=== PATIENT | male | born 1935 | race Caucasian/White ===

== ENCOUNTER 2018-10-21 11:39 | Inpatient (IN) ==
[2018-10-21] MEDS ORDERED: MoRPHine SULFATE 2 MG/ML CARP IV PRN ×2 (13:21→18:43)
[2018-10-21] MEDS ORDERED: MoRPHine SULFATE 4 MG/ML 1 ML CARP\\VIAL IV PRN (13:21)
[2018-10-21] MEDS ORDERED: ONDANSETRON INJ 2 MG/ML 2 ML VIAL IV PRN ×2 (13:21→16:42)
--- OUTSIDE RECORDS SUMMARY | 2018-10-21 14:28 | External Medical Summary | Continuity of Care Document ---
:1935 Author Name Chinmay Diaz Address Unavailable Unavailable , Care Team Providers Name Role Phone Unavailable Unavailable Unavailable Problems Chronic reflux esophagitis (530.11) (K21.0) Shortness of breath (786.05) (R06.02) Asthma (493.90) (J45.909) Aortic stenosis (424.1) (I35.0) Allergies and Adverse Reactions No Known Drug Allergies (Allergy) Medications Toprol XL 25 MG Oral Tablet Extended Release 24 Hour; TAKE 1 TABLET DAILY. , M.D. Refills: 0 Fish Oil 1000 MG Oral Capsule; TAKE 1 CAPSULE DAILY. , M.D. Refills: 0 Advair Diskus 100-50 MCG/DOSE Inhalation Aerosol Powder Breath Activated; INHALE 1 PUFF EVERY 12 HOURS. , M.D. Refills: 0 Aspirin 81 MG TABS; TAKE 1 TABLET DAILY. , M.D. Quantity: 30 Refills: 5 Ibuprofen 600 MG Oral Tablet; TAKE 1 TABLET 3 TIMES DAILY . , M.D. Refills: 0 PriLOSEC 20 MG CPDR; TAKE 1 CAPSULE TWICE DAILY. , M.D. Refills: 0 ProAir HFA 108 (90 Base) MCG/ACT Inhalat ion Aerosol Solution; INHALE 2 PUFFS EVERY 4 HOURS NEEDED , M.D. Quantity: 1 Refills: 5 Triamterene-HCTZ 37.5-25 MG Oral Tablet; TAKE 1 TABLET DAILY . , M.D. Quantity: 30 Refills: 5 Procedures History of Reported Hx Of Knee Replacement Status: Completed History of Tonsillectomy With Adenoidectomy Status: Completed History of Appendectomy Status: Complete d History of Hernia Repair Status: Complet ed History of Neuroplasty Decompression Median Nerve At Carpal Status: Completed Tunnel Immunizations Immunizations not documented Family History Unknown Family Member Family history of Parkinson Disease Status: Active Comm ents: Family History Social History - Smoking Status Never smoker Plan of Treatment Planned Observations Planned Goals not documented Results No Known Results Results not documented
[2018-10-21] MEDS ORDERED: MIDAZOLAM HCL 1 MG/ML 2ML VIAL ONE (15:13)
[2018-10-21] MEDS ORDERED: fentaNYL citrate 100 MCG/2 ML VIAL ONE ×2 (15:13→16:39)
--- NOTE | 2018-10-21 15:40 | Urology Consultation ---
Date of Consultation October 21, 2018 Assessment & Plan (1) Left ureteral calculus: to OR for cysto left stent in a few weeks once cr is normal will plan a day surgery to remove stones. 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 Patient is an urgent transfer from [facility]. He has rise in creatinine to over 2. He has baslein e of 1 cr. He has no pain. CT shows several elft ureteral stones upper and lower ureter with severe hydro. Requesting Physician: Dr Zane Roche Attending Physician: Dawson Will MD Patient History Medical History Acute renal failure Anemia GERD (gastroesophageal reflux disease) Hypertension Obesity Ureteral stone Surgical History History of appendectomy History of heart valve replacement September 02 2016 History of hernia repair History of knee replacement Social History Communication Ability: Effective [employer] Instructor Required: No Beliefs That Will Affect Care: None Current Living Situation: Alone Other Information That Helps Us Care for You: No Feels Safe at Home: Yes Smoking Status: Never smoker Do You Dip or Chew Tobacco: No Hx Alcohol Use: No Hx Substance Use: No Review of Systems Review of Systems: PMH- borderline DM, HTN, GERD PSH- aortic valve replacement endovascular at [facility] Allergy- none soc- retired, + children, no tobacco or alcohol ROS- no chest pain or shortness of breath, + constipation, no seizures, no rash, no urinary problems, no fever or chills Physical Exam Constitutional: WD/WN, vitals as above + obese Respiratory: normal respiratory effort, lungs clear to auscultation Cardiovascular: RRR, no murmur, no edema soft blowing systolic murmur Psychiatric: A+Ox3, euthymic affect Results & Data Vital Signs (Past 12 Hours) Vital Signs Temp Pulse Resp BP Pulse Ox 10/21/18 14:27 36.8 C 62 16 161/75 H 96
--- NOTE | 2018-10-21 15:40 | Anesthesiology Consultation ---
Date of Service October 21, 2018 Assessment & Plan (1) Encounter for pre-operative examination: Chart Review Chart Review: Acceptable Risk for Surgery and Patient NOT seen in Pre Admission Testing Consults Requested none ASA [id number] Proposed Anesthesia Anesthesia Type: MAC Risk / Benefits Reviewed With: PT / POA / Parent / Guardian, Accepts Plan and Informed Consent Obtained History Surgery Operation Date: 10/21/18 13:35 Proposed Procedures p Cystoscopy, Left Stent Insertion - Radha Romero MD Height/Weight Height: 5 ft 10 in Weight: 113.398 kg Allergies Allergy/AdvReac Type Severity Reaction Status Date / Time No Known Allergies Allergy Verified 10/21/18 16:01 Medications Home Medications Medication Instructions Recorded Confirmed Last Taken Aspirin Low Dose 10/21/18 10/20/18 08:00 esomeprazole magnesium 10/21/18 10/20/18 08:00 lisinopril 10/21/18 10/20/18 08:00 metoprolol succinate 10/21/18 10/20/18 08:00 omega-3 fatty acids-fish oil [Fish 1 cap PO DAILY 10/21/18 10/21/18 10/20/18 08:00 Oil] omeprazole 10/21/18 10/20/18 08:00 tamsulosin 10/21/18 10/20/18 08:00 NPO Date Last Intake of Fluids: 10/21/18 Time Last Intake of Fluids: 12:30 Date Last Intake of Solids: 10/20/18 Time Last Intake of Solids: 18:30 Past Medical History Medical History Acute renal failure Anemia GERD (gastroesophageal reflux disease) Hypertension Obesity Ureteral stone Exercise / Class Metabolic Activity III < 4 Walking/Shop/Light housework Past Surgical History Surgical History History of appendectomy History of heart valve replacement September 02 2016, endovascular aortic valve History of hernia repair History of knee replacement Past Anesthesia History No Hx of Anesthesia Complications and No Family Hx of Anesthesia Complications History of PONV No Hx of PONV and No Hx of Motion Sickness Social History Smoking Status: Never smoker Do You Dip or Chew Tobacco: No Hx Alcohol Use: No Hx Substance Use: No Review of Systems no chest pain or sob Physical Exam Vital Signs Last Vital Signs Temp 38 C H 10/21/18 15:35 Pulse 70 10/21/18 15:35 Resp 18 10/21/18 15:35 BP 153/84 H 10/21/18 15:35 Pulse Ox 95 10/21/18 15:35 Constitutional + obese ENMT Mouth: + dental caries; no TMJ abnormality Thyromental Distance: > or= 3.5 Finger Breadths Mallampati Class: III Neck normal visual inspection and + thick neck Respiratory normal respiratory effort Auscultation: lungs clear to auscultation bilaterally and + diminished lung sounds Cardiovascular Rate/Rhythm: regular rate and regular rhythm Neurologic moves all extremities Psychiatric Orientation: alert and oriented x 3 Testing Laboratory Results Glucose 147 BUN 34 Cr 2.3 Na 139 K 4.5 CO2 25 AG 10.5 Ca 8.8 Total prot 7.4 albumin 3 WBC 5.3 Hgb 12 Plt 125
[2018-10-21] MEDS ORDERED: IOTHALAMATE MEGLUMINE II 17.2% 250 ML VIAL ONE (15:46)
--- NOTE | 2018-10-21 15:50 | History & Physical Report ---
Date of Service October 21, 2018 Assessment & Plan (1) Hydronephrosis concurrent with and due to calculi of kidney and ureter: - CT performed at [facility] with 12 mm prox L ureter stone and multiple stones in L UVJ and bladder; moderate/severe L hydronephrosis - Labs largely unremarkable with WBC 5.3; Lactic 0.8; UA appears unremarkable but reports "few bacteria" - S/P cystoscopy with stent and Coude catheter placement - planning on stone removal in coming weeks -- Noted to have an enlarged prostate on cysto - Pain control with Tylenol, Percocet, Morphine PRN; anti-emetics PRN - Flomax 0.4 mg HS and Proscar 5 mg daily - Urology following - appreciate surgical management/input Present on Admission?: Yes (2) Acute kidney injury: - Most recent Cr is 2.3 which is likely in the setting of obstructive uropathy - NSS at 125 mL/hr and daily BMP; Hold Lisinopril in setting of JAN - Reported baseline around 1 but no laboratories to compare Present on Admission?: Yes (3) Essential hypertension: - Patient is not sure of dosing of his medication but confirms he takes Lisinopril and Metoprolol - Per outpatient pharmacy it appears he takes Lisinopril 10 mg daily (on hold due to JAN) and Toprol XL 12.5 mg daily (notes he does take 1/2 tablet of a blood pressure medication) - Will continue Toprol XL 12.5 mg and Hydralazine PRN; having elevated pressures which is likely multifactorial and remains asymptomatic from them - Hold ASA given cystoscopy at this time Present on Admission?: Yes (4) DVT prophylaxis: - SCDs History of Present Illness Chief Complaint: Back Pain Primary Care Provider: NO PCP Mr. Shipman is an 83 y/o with PMHx of HTN, GERD, and Porcine Aortic Valve Replacement (2017) who presents from [facility] due to ureteral stone, hydronephrosis, and JAN. Pt reports his has had some mild L back pain over the past 3 days. States he initially thought this was due to constipation but did move his bowels on 10/20. The pain progressively worsened and he was evaluated in a walk-in clinic the day prior. His PCP did recommend ED evaluation and he reported to [facility] ED this AM. He was found to have a 12 mm proximal L ureter stone and multiple stones in the L UVJ and bladder with associated moderate/severe L hydronephrosis. UA appears relatively unremarkable. WBC 5.3 and Lactic 0.8. Creatinine is noted to be 2.3 with reports that baseline is around 1. Upon arrival to [facility], he underwent cystoscopy with stent placement and Coude catheter placement. Currently states he has some mild burning sensation at the meatus but is better than before. Currently denies back pain and asking for food. He appears non-toxic and denies feelings of fever/chills. He was noted to have a mild fever of 100 F prior to cystoscopy. Allergies Allergy/AdvReac Type Severity Reaction Status Date / Time No Known Allergies Allergy Verified 10/21/18 16:01 Home Medications Home Medications Medication Instructions Recorded Confirmed Type Aspirin Low Dose 81 mg PO DAILY 10/21/18 10/21/18 History esomeprazole magnesium 20 mg PO DAILY 10/21/18 10/21/18 History lisinopril 10 mg PO DAILY 10/21/18 10/22/18 History metoprolol succinate 12.5 mg PO DAILY 10/21/18 10/21/18 History omega-3 fatty acids-fish oil [Fish 1 cap PO DAILY 10/21/18 10/21/18 History Oil] tamsulosin 0.4 mg PO DAILY 10/21/18 10/22/18 History Past Med/Surg History Medical History Acute renal failure Anemia GERD (gastroesophageal reflux disease) Hypertension Obesity Ureteral stone Surgical History History of appendectomy History of heart valve replacement September 02 2016, endovascular aortic valve History of hernia repair History of knee replacement Social History Communication Ability: Effective Beliefs That Will Affect Care: None Current Living Situation: Alone Feels Safe at Home: Yes Smoking Status: Never smoker Hx Alcohol Use: No Hx Substance Use: No Review of Systems Constitutional: no fever, no chills, no fatigue and no anorexia Eyes: no worsening vision Ear, Nose, Mouth, Throat: no nasal congestion, no sore throat, no hoarseness and no dysphagia Respiratory: no cough, no dyspnea and no dyspnea on exertion Cardiovascular: no chest pain, no palpitations, no lightheadedness and no edema Gastrointestinal: no abdominal pain, no nausea, no vomiting, no constipation and no diarrhea/loose stools Genitourinary: + dysuria Musculoskeletal: no joint pain and no body aches Integumentary: no rash Physical Exam Constitutional: well developed and well nourished; no acute distress and not ill appearing Eyes: + anicteric sclerae ENMT: Ears: no hearing impairment Neck: normal visual inspection and trachea midline Respiratory: normal respiratory effort, lungs clear to auscultation Cardiovascular: RRR, no murmur, no edema Gastrointestinal (Abdomen): Inspection/Auscultation: + abdomen distended and normal bowel sounds Percussion/Palpation: abdomen soft; abdomen nontender Musculoskeletal: Head/Neck/Chest: normocephalic, head atraumatic and neck supple Extremities: no cyanosis and no clubbing Skin: no rashes, warm and dry Neurologic: moves all extremities Psychiatric: A+Ox3, euthymic affect Results & Data Vital Signs (Past 12 Hours) Vital Signs Temp Pulse Resp BP Pulse Ox 10/21/18 15:35 38 C H 70 18 153/84 H 95 10/21/18 14:27 36.8 C 62 16 161/75 H 96 Code Status & VTE Plan Code Status FULL RESUSCITATION VTE Prophylaxis Plan VTE Prophylaxis will be ordered: Yes Supervising Physician Co-Signing Physician Notes Attending note: patient seen and examined with Jessika Serrano PA-C. I agree with her HPI, history, exam, ROS and A/P. I personally reviewed the labs and imaging findings. Patient admitted for ureteral stone, s/p stent placement. Seen after procedure. Feeling okay, a little fatigued. Pain controlled - JAN: due to ureteral stone, will continue fluids and repeat BMP in the morning - Ureteral stone: pain control, stent placed, continue on antibiotics defer to urology for definitive managment for full details see full H/P
[2018-10-21] MEDS ORDERED: CEFAZOLIN 2000MG 2,000 MG/15 ML SYR IV SCH (16:00)
[2018-10-21] MEDS ORDERED: PROPOFOL IV EMULSION 10 MG/ML 20 ML VIAL IV ONE ×3 (16:18→16:41)
[2018-10-21] MEDS ORDERED: DEXAMETHASONE SOD INJ 4 MG/ML VIAL ONE (16:18)
[2018-10-21] MEDS ORDERED: LIDOCAINE HCL 2% 2 ML VIAL/AMP(20MG/ML) INFIL ONE (16:18)
[2018-10-21] MEDS ORDERED: ONDANSETRON INJ 2 MG/ML 2 ML VIAL ONE (16:18)
[2018-10-21] MEDS ORDERED: PHENYLEPHRINE 100MCG/ML 5ML SYR IV PRN (16:42)
[2018-10-21] MEDS ORDERED: LABETALOL HCL IV 5 MG/ML 20ML IV PRN (16:42)
[2018-10-21] MEDS ORDERED: ePHEDrine sulfate 50 MG/ML AMP IV PRN (16:42)
[2018-10-21] MEDS ORDERED: fentaNYL citrate 100 MCG/2 ML VIAL IV PRN (16:42)
[2018-10-21] MEDS ORDERED: ATROPINE SULFATE 0.1 MG/ML 10ML SYR IV PRN (16:42)
[2018-10-21] MEDS ORDERED: BELLADONNA/OPIUM SUPP 60 MG SUPP PR ONE (16:49)
--- NOTE | 2018-10-21 16:57 | Operative Report ---
Post Operative Report Pre & Post Diagnosis Operation Date: 10/21/18 13:35 Pre-Op Diagnosis: left Ureteral Stones, Hydronephrosis, renal failure Post-Op Diagnosis: Bladder stones, ureteral stones, hydronephrosis Procedure Operation Date: 10/21/18 13:35 Actual Procedures p Cystoscopy, Left Stent Insertion(Left) quinones placement - Radha Romeor MD Surgeon Radha Romero MD Billet Sawyer none Estimated Blood Loss 30 Findings See Below very large long prostate, large middle lobe medium and large bladder stones in the dependent trigone crease with the middle lobe of prostate. UOs very difficult to see. Fluids 900 Specimens none Drains 6 fr 26 centimeter double J stent Anesthesia Type General Disposition Accompanied Patient To Recovery: Yes Disposition: Recovery Room Indications renal failure and large obstructing left upper ureteral stone Description of Procedure Patient was sedated and placed in lithotomy position. His genitals were prepped and draped in sterile fashion. Time out held with team. I placed a 18 fr flexible cystoscope to bladder. The urethra is unremarkable. The prostate is long and lifts the bladder neck considerably. Bladder is trabeculated. I could not find the UOs and there are bladder stones medium and large in the crease f the dependent trigone with I switched back to a flexible cystoscope. I had anesthesia switch to general LMA anesthesia as he was too figity with the MAC. The UOs are finally identified by retroflexing the scope. I placed a road runner wire up left ureter to the upper ureter. I used the 5 fr as a backboard to manipulate the road runner passed the large radio-opaque stone and then switched to a stiff wire. I placed a 26 centimeter 6 Fr double J stent easily. There is brisk efflux after placement. I left bladder empty by placing a 20 fr coude quinones and concluded case. I placed a belladonna and opium suppository for post-op pain. He transferred to recovery under my escort, in stable condition. Plan: observe in hospital for 2 days surgery in 2-3 weeks. will need extra long instruments ASA 3e clean contaminated case 30 seconds fluoro ancef antibiotic aviation safety technician I attest to the content of the Intraoperative Record and any orders documented therein. Any exceptions are noted below.
[2018-10-21] MEDS ORDERED: BELLADONNA/OPIUM SUPP 60 MG SUPP PR PRN (17:05)
--- NOTE | 2018-10-21 17:26 | Anesthesiology Progress Note ---
Date of Service October 21, 2018 Anesthesia Post Procedure Vital Signs Vital Signs: Temp Pulse Pulse Resp BP Pulse Ox 10/21/18 17:04 36.0 C L 82 21 141/81 H 96 10/21/18 15:35 38 C H 70 18 153/84 H 95 10/21/18 14:27 36.8 C 62 16 161/75 H 96 Pain Intensity Lower Abdomen: Pain Intensity: 0 Transfer of Care Handoff Completed per policy Notes Mental Status: alert / awake / arousable Patient Amnestic to Procedure: Yes Nausea / Vomiting: adequately controlled Pain: adequately controlled Airway Patency, RR, SpO2: stable & adequate BP & HR: stable & adequate Hydration State: stable & adequate Anesthetic Complications: no major complications apparent and Pt Satisfied with anesthetic care Notes: The patient was converted to a GA with LMA during the procedure. He is awake and stable.
--- NOTE | 2018-10-21 17:28 | Fluoroscopy Report ---
FL KUB CLINICAL HISTORY: CYSTO COMPARISON STUDY: CT of the abdomen and pelvis October 21, 2018. FLUOROSCOPY TIME: 30 seconds. FLUOROSCOPIC IMAGES: 3 FINDINGS: These images demonstrate cannulation of the left ureter. Left ureteropelvic junction calcul us is noted. Distal aspect of the left ureteral stent is within the bladder. A few suspected bladder calculi are noted. IMPRESSION: Fluoroscopic images from left retrograde exam with ureteral stent insertion. Electronically signed by: Walter Steel M.D. 10/21/2018 5:27 PM
[2018-10-21] MEDS ORDERED: HydrALAZINE HCL 20 MG/ML VIAL IV PRN (18:37)
[2018-10-21] MEDS ORDERED: ACETAMINOPHEN 325 MG TAB PO PRN (18:43)
[2018-10-21] MEDS ORDERED: POLYETHYLENE (MIRALAX) 17 GM PACK PO PRN (18:44)
[2018-10-21] MEDS ORDERED: BISACODYL 5 MG TABEC PO PRN (18:44)
[2018-10-21] MEDS ORDERED: HydrALAZINE HCL 20 MG/ML VIAL ONE (18:52)
[2018-10-21] MEDS: SODIUM CHLORIDE 0.9% 1000ML 1,000 ML IV SCH (19:39)
[2018-10-21] MEDS: OXYCODONE/ACETAMINOPHEN 5mg/325mg TAB PO PRN (19:58)
[2018-10-21] MEDS: cefTRIAXone SODIUM 2,000 MG in DEXTROSE 5% 50 ML IV SCH (19:59)
[2018-10-21] MEDS: TAMSULOSIN HCL 0.4 MG CAP PO SCH (19:59)
[2018-10-22] MEDS: SODIUM CHLORIDE 0.9% 1000ML 1,000 ML IV SCH ×4 (00:40→21:09)
[2018-10-22] MEDS: OXYCODONE/ACETAMINOPHEN 5mg/325mg TAB PO PRN ×2 (00:41→05:52)
[2018-10-22 07:05] LABS: Hematocrit (blood only) 35.1 % (42-52); Mean Corpuscular Hgb Conc 34.2 g/dL (32-36); Mean Corpuscular Volume 87.5 fL (80-100); Mean Platelet Volume 12.2 fL (7.4-10.4); Platelet Count 145 K/uL (130-400); RDW Coefficient of Variation 13.8 % (11.5-14.5); RDW Standard Deviation 44.3 fL (36.4-46.3); Red Blood Count 4.01 M/uL (4.7-6.1); White Blood Count 6.12 K/uL (4.8-10.8)
[2018-10-22 07:43] LABS: BUN Creatinine Ratio 15.8 (10-20); Calcium 8.5 mg/dl (8.5-10.1); Creatinine Clr Calc Pharmacy 36.9 ml/min; Est GFR (African American) 35.7; Est GFR (Non-African American) 30.8; Potassium 5.3 mmol/L (3.5-5.1)
[2018-10-22] MEDS: PANTOprazole 40 MG TAB PO SCH (09:28)
[2018-10-22] MEDS: METOPROLOL SUCC 25MG EXT REL TAB PO SCH (09:28)
[2018-10-22] MEDS: FINASTERIDE 5 MG TAB PO SCH (09:28)
--- NOTE | 2018-10-22 13:40 | Urology Progress Note ---
Date of Service October 22, 2018 Assessment & Plan (1) Left ureteral calculus: POD#1 cysto left stent Has a VERY large prostate and will need to gain access to extra long instruments to do the stone remoal from bladder and ureter. Keep quinones another day as urine still to bloody to remove quinones. in a few weeks once cr is normal will plan a day surgery to remove stones. Creatinine trending down. Present on Admission?: Yes Subjective patient siting in chair having just finished lunch. feels well. Review of Systems Review of Systems: All systems reviewed & are unremarkable except as noted in HPI & below Physical Exam Constitutional: WD/WN, vitals as above + morbidly obese Respiratory: normal respiratory effort and able to speak in complete sentences; no labored breathing Psychiatric: A+Ox3, euthymic affect Genitourinary: quinones in placed draining darkly bloody urine. No clots. Results & Data Vital Signs (Past 12 Hours) Vital Signs Temp Pulse Pulse Resp BP Pulse Ox 10/22/18 11:45 36.9 C 71 20 138/74 94 10/22/18 08:33 36.6 C 73 22 148/56 H 94 10/22/18 03:11 37.2 C 92 H 14 146/72 H 95
--- NOTE | 2018-10-22 14:48 | Hospitalist Progress Note ---
Date of Service October 22, 2018 Assessment & Plan (1) Hydronephrosis concurrent with and due to calculi of kidney and ureter: - CT performed at [facility] with 12 mm prox L ureter stone and multiple stones in L UVJ and bladder; moderate/severe L hydronephrosis - S/P cystoscopy with stent and Coude catheter placement - planning on stone removal in coming weeks; continues with hematuria and [place] to remain today -- Noted to have an enlarged prostate on cysto - Pain control with Tylenol, Percocet, Morphine PRN; anti-emetics PRN - Flomax 0.4 mg HS and Proscar 5 mg daily - Urology following - appreciate surgical management/input (2) Acute kidney injury: - Most recent Cr is 2.3 which is likely in the setting of obstructive uropathy; currently Cr improving at 1.9 with mild hyperkalemia and will monitor - NSS at 125 mL/hr and daily BMP; Hold Lisinopril in setting of JAN - Reported baseline around 1 but no laboratories to compare (3) Essential hypertension: - Patient is not sure of dosing of his medication but confirms he takes Lisinopril and Metoprolol - Per outpatient pharmacy it appears he takes Lisinopril 10 mg daily (on hold due to JAN) and Toprol XL 12.5 mg daily (notes he does take 1/2 tablet of a blood pressure medication) - Will continue Toprol XL 12.5 mg and Hydralazine PRN - Hold ASA given cystoscopy at this time (4) DVT prophylaxis: - SCDs Subjective Pt reports feeling well overall. Only has pain when he passes little blood clots but other than that feels fine. Continues with bloody urine in [place]. Tolerating diet without issue. Renal function is improving. Denies any new symptoms. Review of Systems Constitutional: no fever, no chills and no anorexia Respiratory: no cough and no dyspnea Cardiovascular: no chest pain, no palpitations, no lightheadedness and no edema Gastrointestinal: no abdominal pain, no nausea, no vomiting, no constipation and no diarrhea/loose stools Genitourinary: + hematuria; no dysuria Integumentary: no rash Physical Exam Constitutional: well developed and well nourished; no acute distress and not ill appearing Eyes: + anicteric sclerae ENMT: Ears: no hearing impairment Neck: normal visual inspection and trachea midline Respiratory: normal respiratory effort, lungs clear to auscultation Cardiovascular: RRR, no murmur, no edema Gastrointestinal (Abdomen): Inspection/Auscultation: + abdomen distended and normal bowel sounds Percussion/Palpation: abdomen soft; abdomen nontender Musculoskeletal: Head/Neck/Chest: normocephalic, head atraumatic and neck supple Extremities: no cyanosis and no clubbing Skin: no rashes, warm and dry Neurologic: moves all extremities Psychiatric: A+Ox3, euthymic affect Results & Data Vital Signs (Past 12 Hours) Vital Signs Temp Pulse Pulse Resp BP Pulse Ox 10/22/18 11:45 36.9 C 71 20 138/74 94 10/22/18 08:33 36.6 C 73 22 148/56 H 94 10/22/18 03:11 37.2 C 92 H 14 146/72 H 95
[2018-10-22] MEDS: cefTRIAXone SODIUM 2,000 MG in DEXTROSE 5% 50 ML IV SCH (20:08)
[2018-10-22] MEDS: TAMSULOSIN HCL 0.4 MG CAP PO SCH (20:10)
[2018-10-23] MEDS ORDERED: OXYCODONE/ACETAMINOPHEN 5mg/325mg TAB PO SCH
[2018-10-23] MEDS: SODIUM CHLORIDE 0.9% 1000ML 1,000 ML IV SCH ×2 (05:18→14:07)
[2018-10-23] MEDS: PANTOprazole 40 MG TAB PO SCH (08:29)
[2018-10-23] MEDS: METOPROLOL SUCC 25MG EXT REL TAB PO SCH (08:29)
[2018-10-23] MEDS: FINASTERIDE 5 MG TAB PO SCH (08:29)
[2018-10-23 08:50] LABS: Hematocrit (blood only) 36.1 % (42-52); Mean Corpuscular Hgb Conc 33.2 g/dL (32-36); Mean Corpuscular Volume 87.8 fL (80-100); Mean Platelet Volume 11.9 fL (7.4-10.4); Platelet Count 136 K/uL (130-400); RDW Standard Deviation 44.9 fL (36.4-46.3); Red Blood Count 4.11 M/uL (4.7-6.1); White Blood Count 4.42 K/uL (4.8-10.8)
[2018-10-23 09:22] LABS: BUN Creatinine Ratio 19.9 (10-20); Calcium 8.6 mg/dl (8.5-10.1); Creatinine Clr Calc Pharmacy 55.8 ml/min; Est GFR (African American) 58.8; Est GFR (Non-African American) 50.7; Potassium 4.2 mmol/L (3.5-5.1)
[2018-10-23 12:30] VITALS: O2SAT 94
[2018-10-23 16:02] VITALS: TEMP 98.8
[2018-10-23] MEDS ORDERED: PERCOCET 5/325MG HOMEPACK PO ONE (17:52)
--- NOTE | 2018-10-23 19:28 | Discharge Summary ---
Date of Service October 23, 2018 Admission HPI Per Admitting Provider Mr. Shipman is an 83 y/o with PMHx of HTN, GERD, and Porcine Aortic Valve Replacement (2017) who presents from [facility] due to ureteral stone, hydronephrosis, and JAN. Pt reports his has had some mild L back pain over the past 3 days. States he initially thought this was due to constipation but did move his bowels on 10/20. The pain progressively worsened and he was evaluated in a walk-in clinic the day prior. His PCP did recommend ED evaluation and he reported to [facility] ED this AM. He was found to have a 12 mm proximal L ureter stone and multiple stones in the L UVJ and bladder with associated moderate/severe L hydronephrosis. UA appears relatively unremarkable. WBC 5.3 and Lactic 0.8. Creatinine is noted to be 2.3 with reports that baseline is around 1. Upon arrival to [facility], he underwent cystoscopy with stent placement and Coude catheter placement. Currently states he has some mild burning sensation at the meatus but is better than before. Currently denies back pain and asking for food. He appears non-toxic and denies feelings of fever/chills. He was noted to have a mild fever of 100 F prior to cystoscopy. Principal Diagnosis L Ureter Stone with Hydronephrosis S/P L Stent Discharge Exam Constitutional well developed and well nourished; no acute distress and not ill appearing Eyes + anicteric sclerae ENMT Ears: no hearing impairment Neck normal visual inspection and trachea midline Respiratory normal respiratory effort, lungs clear to auscultation Cardiovascular RRR, no murmur, no edema Gastrointestinal (Abdomen) Inspection/Auscultation: + abdomen distended and normal bowel sounds Percussion/Palpation: abdomen soft; abdomen nontender Musculoskeletal Head/Neck/Chest: normocephalic, head atraumatic and neck supple Extremities: no cyanosis and no clubbing Skin no rashes, warm and dry Neurologic moves all extremities Psychiatric A+Ox3, euthymic affect Discharge Data Allergies Allergy/AdvReac Type Severity Reaction Status Date / Time No Known Allergies Allergy Verified 10/21/18 16:01 Consultations 10/21/18 13:21 Consult Urology Routine 10/21/18 13:25 Consult Case Management - Discharge Planning Routine 10/23/18 16:09 Consult BALBIR receiver setter Routine Procedures Performed Operation Date: 10/21/18 13:35 Actual Procedures p Cystoscopy, Left Stent Insertion(Left) - Radha Romero MD Ordered Studies 10/21/18 FL KUB Routine FL fluoroscopy <1hr Routine Hospital Course (1) Hydronephrosis concurrent with and due to calculi of kidney and ureter: - CT performed at [facility] with 12 mm prox L ureter stone and multiple stones in L UVJ and bladder; moderate/severe L hydronephrosis - S/P cystoscopy with stent and Coude catheter placement - planning on stone removal in coming weeks -- Noted to have a very enlarged prostate on cysto - Chahal catheter removed as urine was clear prior to discharge with adequate urination post-removal - now with slightly increased hematuria however no clots and no pain with urination - Will do a course of Keflex 500 mg BID x 7 more days; Percocet PRN; Proscar 5 mg daily and Flomax 0.4 mg daily - Instructed to hold ASA until hematuria improves; recommended to then discuss with Urologist as this may get held prior to stone removal - Urology following - appreciate surgical management/input (2) Acute kidney injury: - Cr is 2.3 at [facility] which is likely in the setting of obstructive uropathy; currently Cr resolved at 1.3 and electrolytes stable - Can resume Lisinopril given resolution of JAN (3) Essential hypertension: - Patient is not sure of dosing of his medication but confirms he takes Lisinopril and Metoprolol - Per outpatient pharmacy it appears he takes Lisinopril 10 mg daily and Toprol XL 12.5 mg daily Total Time Total Time Spent Total Time Spent (In Minutes): Greater than 30 minutes Discharge Plan Discharge Items Patient Disposition: Home - Self-Care Reason For Visit: ACUTE KIDNEY INJURY RENOCOLIC Discharge Diagnosis: Kidney Stone Discharge Goals: Decrease discomfort, Improve disease control and Learn about illness Activity: Resume your previous activity Non-emergency contact: Primary Care Provider Call non-emergency contact if: you have any medication questions, your symptoms worsen and you have a fever Follow-up/Referrals: Bernie Hair MD [Primary Care Provider] - Diet: Regular Addtl Provider Instructions: Kidney Stone with Fluid Around the Kidney: - You were found to have a kidney stone that was stuck in the tube leading from the kidney to the bladder. There were also other stones present in the bladder. - Due to the stone, this caused urine and fluid to back up around your kidney. You had a stent placed to help keep urine and fluid draining until the stone can be removed - Dr. Romero (Urologist) will have a follow-up appointment to remove the stone and the stent. You will be called with an appointment. If you do not hear from someone in a couple days please call their office. - You were found to have a large prostate and were started on Finasteride to help control this. A prescription will be sent home with you. - Would recommend to hold you aspirin at least until the urine is no longer bloody. Also recommend to talk with the Urologist to see if you should continue this as they may want to hold this medication when they go to remove the stones - Will also finish a course of antibiotics. Start these on 10/24. A prescription will be sent for you. - It is common to have some bloody urine for a few days. Recommend to keep drinking fluids and this will start to lighten up and resolve. Sometimes you can have some mild burning with urination initially but if this doesn't resolve call your doctor. You can get some mild discomfort with the stent however if it gets constant and hard to control with pain medication, please call your doctor. Elevated Kidney Numbers: - You had elevated kidney numbers due to having these stones. Currently your kid siddhartha numbers are back to normal. - Recommend to keep hydrated and aim for urine that is pale yellow in color - You may continue your blood pressure medications now that your kidney numbers are back to normal - You may continue to have some mild bloody urine with that stent in place. If you develop worsening pain or you notice you are not urinating please get checked out by a doctor Prescriptions: New oxycodone-acetaminophen [Percocet] 5-325 mg Tablet 1 tab PO Q4H PRN (Reason: pain) 3 Days Qty: 18 RF: 0 finasteride [Proscar] 5 mg Tablet 5 mg PO QAM 30 Days Qty: 30 RF: 0 cephalexin 500 mg capsule 500 mg PO BID 7 Days Qty: 14 RF: 0 Continued esomeprazole magnesium 20 mg capsule,delayed release(DR/EC) 20 mg PO DAILY RF: 0 lisinopril 10 mg tablet 10 mg PO DAILY RF: 0 metoprolol succinate 25 mg tablet extended release 24 hr 12.5 mg PO DAILY RF: 0 tamsulosin 0.4 mg capsule 0.4 mg PO DAILY RF: 0 Aspirin Low Dose 81 mg 81 mg PO DAILY RF: 0 omega-3 fatty acids-fish oil [Fish Oil] 360-1,200 mg Capsule 1 cap PO DAILY RF: 0 Stand-Alone Forms: [facility] Discharge Orders: Discharge Order (Routine); Ordered 10/23/18 Ordered By: Jessika Serrano Admission Data Admit Date/Time: 10/21/18 18:35 Attending Provider: Zane Roche Admit Provider: Melchor Michaud Primary Care Provider: Bernie Hair Other Providers: Radha Romero Service: Medical Other Pending Studies at Discharge: No
[2018-10-23 20:10] VITALS: BP 162/82; PULSE 94
== END 2018-10-23 20:55 | disposition home or self-care (01) | DRG 661 ==
LOC: SUATTDRO 14:20 → INTOOBSV 14:20 → 3N 14:20

== ENCOUNTER 2023-07-26 20:09 | Inpatient (IN) ==
[2023-07-26 21:22] LABS: Albumin Globulin Ratio 1.3 (0.9-2); BUN Creatinine Ratio 18.7 (10-20); Bilirubin,Total 0.6 mg/dl (0.2-1.0); Calcium 9.2 mg/dl (8.6-10.3); Creatinine Clr Calc Pharmacy 40.9 ml/min; Est GFR (African American) 42.6 ml/min; Est GFR (Non-African American) 36.8 ml/min; Globulin 3.1 gm/dl (2.5-4.0); Potassium 4.8 mmol/L (3.5-5.1); Total Protein 7.1 gm/dl (6.0-8.3)
[2023-07-26 21:29] LABS: Basophils # (auto) 0.01 K/uL (0.00-0.20); Basophils % (auto) 0.2 %; Eosinophils # (auto) 0.05 K/uL (0.00-0.50); Eosinophils % (auto) 1.2 %; Hematocrit (blood only) 35.3 % (42.0-52.0); Hemoglobin 10.9 g/dl (14.0-18.0); Immature Granulocytes # (auto) 0.02 K/uL (0.01-0.20); Immature Granulocytes % (auto) 0.5 %; Lymphocytes # (auto) 0.76 K/uL (1.20-3.40); Lymphocytes % (auto) 17.7 %; Mean Corpuscular Hemoglobin 27.7 pg (25.0-34.0); Mean Corpuscular Hgb Conc 30.9 g/dL (32.0-36.0); Mean Corpuscular Volume 89.8 fL (80.0-100.0); Monocytes % (auto) 11.7 %; Neutrophils # (auto) 2.95 K/uL (1.40-6.50); Neutrophils % (auto) 68.7 %; Platelet Count 60 K/uL (130-400); RDW Coefficient of Variation 15.3 % (11.5-14.5); RDW Standard Deviation 50.3 fL (36.4-46.3); Red Blood Count 3.93 M/uL (4.70-6.10); White Blood Count 4.29 K/ul (4.8-10.8)
--- NOTE | 2023-07-26 21:30 | Emergency Department Note ---
Impression & Plan Atrial fibrillation, new onset, Acute pain of left thigh, Elevated troponin I level, Thrombocytopenia, Arterial occlusion ED Provider Note NAME: SABINO AGOSTO AGE: 88 SEX: M : 1935 ARRIVES VIA: Ambulance INFORMANT: Patient, the patient's family members ED PROVIDER(S): Will Zuniga DO CHIEF COMPLAINT: Leg pain HPI: The patient is an 88-year-old male who presented to the emergency department for an evaluation of leg pain. The patient noticed pain behind his posterior left thigh which occurred today around 1 PM. The patient denies having any swelling. He does complain of numbness in the legs. He denies having any abdominal pain or chest pain. He has no history of irregular heartbeat and does not take blood thinners. The patient denies having any recent trauma. The patient's family members noted that he was uncomfortable and the patient came to the emergency department immediately for further evaluation by ambulance. ROS: See above HPI for pertinent positives & negatives. A total of 10 systems reviewed and were otherwise negative. PAST MEDICAL HISTORY: See Below PAST SURGICAL HISTORY: See Below FAMILY HISTORY: See Below SOCIAL HISTORY: See Below HOME MEDICATIONS: See Below ALLERGIES: See Below VITALS: See Below PHYSICAL EXAMINATION: GENERAL: The patient is awake and alert. He follows commands well. EYES: The conjunctivae are clear. The pupils are round and reactive. EARS, NOSE, MOUTH AND THROAT: The nose is without any evidence of any deformity. NECK: The neck is nontender and supple. RESPIRATORY: Normal respiratory effort is noted there is no evidence of wheezing rhonchi or rales CARDIOVASCULAR: Irregular heart sounds were noted to auscultation. There is no definite murmur. GASTROINTESTINAL: The abdomen is soft. Abdomen is nontender. MUSCULOSKELETAL/EXTREMITIES: There is no evidence of gross deformity full range of motion is noted in the hips and shoulders. SKIN: Skin is pale. There is no significant pedal edema. The left foot is cold compared to the right. Pulses are diminished in both feet. Pulses are symmetric in both groins. NEUROLOGIC: Patient is awake alert and oriented x3. Strength is symmetric. MEDICAL DECISION MAKING: The patient is an 88-year-old male who presented to the emergency department for an evaluation of left thigh pain. The patient had left posterior thigh pain which began acutely today. He did have some temperature difference between his feet. His left foot was slightly cooler than the right. Arterial Doppler did not show any significant occlusion but there is an absent flow noted in the posterior tibial artery. There is no signs of DVT. The patient was found to be in atrial fibrillation which is a new diagnosis for him. I discussed the patient's laboratory and radiographic studies with him. He was found to have an elevation in his troponin as well. He was started on heparin for possible arterial occlusion but also because of the elevation in the troponin. The patient is thrombocytopenic as well. I discussed the patient's condition with the on-call [facility]. They did recommend that we order a CT angiography of the left leg. Otherwise we will evaluate the patient in the emergency department for further management. Triage Nursing notes reviewed. Prior medical records reviewed Vital Signs: reviewed and remarkable for elevated blood pressure. Differential diagnosis: DVT, musculoskeletal, infection, joint effusion, trauma, lymphedema, idiopathic, CHF, as well as other pathologies. ER treatment provided: See below Diagnostics interpreted by me: ECG: EKG was obtained in the emergency department. My interpretation is atrial fibrillation at 107 bpm. There were no PVCs noted. There is no specific ST segment abnormalities noted. No previous tracing was available. Cardiac Monitoring: An order was placed for continuous cardiac monitoring. The monitor shows a rate of 80 bpm with atrial fibrillation. Laboratory studies: As stated above and show below. Imaging studies: See below. Radiographic imaging was reviewed by myself Consultation(s): I discussed this case with Dr. Burks who is on-call for the [facility] group. Procedures: none Critical Care: I have personally spent greater than 40 minutes of critical care time in the direct management of this patient. This includes bedside care, interpretation of diagnostic studies, and testing, discussion with consultants, patient, and family members, and other required patient management activities. This 40 minutes is in excess of all separately billable procedures. Past Med/Surg History Medical History BPH (benign prostatic hyperplasia) Thrombocytopenia History of bladder stone Urinary incontinence CAD (coronary artery disease) Non-obstructive Follows with PH Cardio Aortic valve disease s/p TAVR (2016) Heart attack 2020, r/t Covid per patient (AKIN Muro) History of COVID-19 04/2021 Kidney stones Obesity GERD (gastroesophageal reflux disease) Hypertension Surgical History History of colonoscopy History of carpal tunnel release R/L History of tooth extraction History of tonsillectomy History of adenoidectomy History of cystoscopy Cystoscopy, ureteroscopy, left stent (10/21/18): LMA#5 at [facility] (converted from MAC to GA as patient not tolerating MAC well per anesthesia record). 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: No Beliefs That Will Affect Care: None Current Living Situation: Alone Current Living Situation Comment: son lives across the street from patient Feels Safe at Home: Yes Assistive Devices: Cane, Glasses, Hearing Aid - Bilateral and Walker Allergies Allergies Allergy/AdvReac Type Severity Reaction Status Date / Time No Known Allergies Allergy Verified 07/26/23 22:51 Home Meds Home Medications Medication Instructions Recorded Confirmed esomeprazole magnesium 20 mg 20 mg PO QAM 10/21/18 07/26/23 capsule,delayed release lisinopril 10 mg tablet 10 mg PO QAM 10/21/18 07/26/23 metoprolol succinate 25 mg 25 mg PO QAM 01/26/23 07/26/23 tablet,extended release 24 hr Previous Rx's Medication Instructions Recorded oxycodone-acetaminophen 7.5 mg-325 1 tab PO Q8H PRN pain #7 tabs 06/04/23 mg tablet (Percocet) tamsulosin 0.4 mg capsule 0.4 mg PO HS #30 caps 06/04/23 Results & Data (ED) Vital Signs Vital Signs - 24 hr 07/26/23 20:27 07/26/23 20:27 07/26/23 21:00 Temperature 36.7 C Temperature Source Oral Pulse Rate 101 H 83 Pulse Rate [Apical] 104 H Respiratory Rate 22 20 Respiratory Depth Normal Blood Pressure 155/90 H Blood Pressure [Left Arm] Blood Pressure Mean 111 Blood Pressure Mean [Left Arm] Blood Pressure Position Lying Pulse Oximetry 97 96 Oxygen Delivery Method Room Air Room Air Sepsis Recent Fever Within 48 Hours No Sepsis New/Unexplained Change in Mental Status N/A Sepsis Action Taken by Nursing No Action Required 07/26/23 22:24 Temperature Temperature Source Pulse Rate Pulse Rate [Apical] 88 Respiratory Rate 18 Respiratory Depth Blood Pressure Blood Pressure [Left Arm] 146/85 H Blood Pressure Mean Blood Pressure Mean [Left Arm] 105 Blood Pressure Position Pulse Oximetry 96 Oxygen Delivery Method Room Air Sepsis Recent Fever Within 48 Hours Sepsis New/Unexplained Change in Mental Status Sepsis Action Taken by Jail Medications Current Medication List: was personally reviewed by me Laboratory Data Attestation: I reviewed the patient's lab results. 07/27/23 06:12 07/27/23 06:12 Lab Results 07/26/23 Range/Units 20:24 WBC 4.29 L (4.8-10.8) K/ul RBC 3.93 L (4.70-6.10) M/uL Hgb 10.9 L (14.0-18.0) g/dl Hct 35.3 L (42.0-52.0) % MCV 89.8 (80.0-100.0) fL MCH 27.7 (25.0-34.0) pg MCHC 30.9 L (32.0-36.0) g/dL RDW Std Deviation 50.3 H (36.4-46.3) fL RDW Coeff of Catie 15.3 H (11.5-14.5) % Plt Count 60 L (130-400) K/uL Immature Gran % (Auto) 0.5 % Neut % (Auto) 68.7 % Lymph % (Auto) 17.7 % [place] % (Auto) 11.7 % Eos % (Auto) 1.2 % Baso % (Auto) 0.2 % Neut # (Auto) 2.95 (1.40-6.50) K/uL Lymph # (Auto) 0.76 L (1.20-3.40) K/uL [place] # (Auto) 0.50 (0.11-0.59) K/uL Eos # (Auto) 0.05 (0.00-0.50) K/uL Baso # (Auto) 0.01 (0.00-0.20) K/uL Immature Gran # (Auto) 0.02 (0.01-0.20) K/uL PT 12.3 H (9.0-12.0) Seconds INR 1.1 (0.9-1.1) APTT 27 (21-31) Seconds PTT Ratio 1.0 Sodium 140 (136-145) mmol/L Potassium 4.8 (3.5-5.1) mmol/L Chloride 109 H (98-107) mmol/L Carbon Dioxide 23 (21-32) mmol/L Anion Gap 8 (3-11) BUN 31 H (6-23) mg/dl Creatinine 1.66 H (0.6-1.4) mg/dl Est Cr Clr Drug Dosing 40.9 ml/min Est GFR ( Amer) 42.6 ml/min Est GFR (Non-Af Amer) 36.8 ml/min BUN/Creatinine Ratio 18.7 (10-20) Glucose 149 H (70-99(Fasting)) mg/dl Calcium 9.2 (8.6-10.3) mg/dl Magnesium 1.8 (1.7-2.4) mg/dl Total Bilirubin 0.6 (0.2-1.0) mg/dl AST 18 (13-39) U/L ALT 15 (7-52) U/L Alkaline Phosphatase 64 (34-104) U/L Troponin I High Sens 64.5 H* (0-20) pg/ml Total Protein 7.1 (6.0-8.3) gm/dl Albumin 4.0 (3.4-5.0) gm/dl Globulin 3.1 (2.5-4.0) gm/dl Albumin/Globulin Ratio 1.3 (0.9-2) TSH 1.420 (0.300-4.500) uIu/ml Administered Medications Heparin Sodium/Dextrose (Heparin Sodium/Dextrose) 25,000 units in 500 mls @ 33 mls/hr IV .[id number] [facility]; Protocol Stop: 08/25/23 23:14 Last Titration: 07/27/23 07:39 Dose: 1,650 units/hr, 33 mls/hr Documented By: KHANG Co-signed By: VICK Titration: 07/27/23 07:04 Dose: 1,650 units/hr, 33 mls/hr Documented By: KHANG Co-signed By: SIDDHARTHA Admin: 07/27/23 00:08 Dose: 1,650 units/hr, 33 mls/hr Documented By: JOHNATHAN Co-signed By: LIZETH Lisinopril (Lisinopril 10 Mg Tab) 10 mg PO QAM [facility] Stop: 08/26/23 08:59 Last Admin: 07/27/23 08:47 Dose: 10 mg Documented By: KHANG Metoprolol Succinate (Metoprolol Succ 25mg Ext Rel Tab) 25 mg PO QAM [facility] Stop: 08/26/23 08:59 Last Admin: 07/27/23 08:47 Dose: 25 mg Documented By: KHANG Pantoprazole Sodium (Pantoprazole 40 Mg Tab) 40 mg PO DAILY SONALI Stop: 08/26/23 08:59 Last Admin: 07/27/23 08:47 Dose: 40 mg Documented By: KHANG Discontinued Medications Heparin Sodium/Dextrose (Heparin Iv Adult Wt-Based Standard *No* Initial Bolus Protocol) 1 each IV ONE STA; Protocol Stop: 07/26/23 22:56 Last Admin: 07/27/23 01:11 Dose: Not Given Documented By: SIDDHARTHA Sodium Chloride (Nss) 500 mls @ 999 mls/hr IV .Q31M ONE Stop: 07/26/23 23:52 Last Infusion: 07/27/23 01:11 Dose: Infused Documented By: Admin: 07/27/23 00:27 Dose: 999 mls/hr Documented By: JOHNATHAN Ioversol (Optiray 320 125ml) 125 ml IV ONCE ONE Stop: 07/27/23 00:08 Last Admin: 07/27/23 00:08 Dose: 116 ml Documented By: HARRY Imaging Data Attestation: I personally reviewed and interpreted this imaging study as follows: My Impression: Ultrasound of the left leg was obtained in the emergency department. My interpretation is no definite DVT noted, final report below. Radiologist's Impression: Venous Doppler Study 07/26/23 21:16 Exam(s): US VENOUS LEFT LOWER EXTREMITY EXAM: US Duplex Left Lower Extremity Veins CLINICAL HISTORY: Reason for exam: thigh pain. TECHNIQUE: Real-time duplex ultrasound scan of the left lower extremity veins integrating B-mode two-dimensional vascular structure, Doppler spectral analysis, color flow Doppler imaging and compression. COMPARISON: No relevant prior studies available. FINDINGS: Deep veins: Unremarkable. No DVT of the LEFT lower extremity. Superficial veins: Unremarkable. No thrombus in the visualized great saphenous vein. Soft tissues: No acute findings. No popliteal cyst. IMPRESSION: No DVT of the LEFT lower extremity. Electronically signed by: Edmudno Beckford MD 07/26/23 22:37 PM Duplex Scan Lower Extremity Artery 07/26/23 21:27 Exam(s): US ARTERIAL LEFT LOWER EXTREMITY EXAM: US Duplex Left Lower Extremity Arteries CLINICAL HISTORY: Reason for exam: pain. TECHNIQUE: Real-time duplex ultrasound scan of the left lower extremity arteries integrating B-mode two-dimensional vascular structure, Doppler spectral analysis and color flow Doppler imaging. COMPARISON: No relevant prior studies available. FINDINGS: Left common femoral artery: No acute findings. No occlusion or significant stenosis on color flow and spectral Doppler imaging. Normal waveform. Left superficial femoral artery: No acute findings. No occlusion or significant stenosis on color flow and spectral Doppler imaging. Normal waveform. Left popliteal artery: No acute findings. No occlusion or significant stenosis on color flow and spectral Doppler imaging. Normal waveform. Left calf/foot arteries: No flow is detected within the left posterior tibial artery. Left anterior tibial artery is patent with multiphasic waveforms. Soft tissues: Unremarkable. IMPRESSION: No flow is detected within the left posterior tibial artery. No hemodynamically significant left femoral-popliteal artery disease. Electronically signed by: William Abarca M.D. 07/26/23 22:53 PM Lower Extremity CTA 07/26/23 23:21 Exam(s): CTA EXTREMITY LEFT LOWER W/WO Contrast IV Amt: 116 ML OPTIRAY 320 EXAM: CT Angiography of the Left Lower Extremity With Intravenous Contrast CLINICAL HISTORY: Reason for exam: left thigh pain. TECHNIQUE: Axial computed tomographic angiography images of the left lower extremity with intravenous contrast. CTDI is 35.62 mGy and DLP is 1753. 78 mGy-cm. Automated exposure control was utilized for the study. A dose lowering technique was utilized adhering to the principles of ALARA. MIP reconstructed images were created and reviewed. CONTRAST: Patient received 116 ML OPTIRAY 320 of IV contrast COMPARISON: None. FINDINGS: VASCULATURE: Left iliac arteries: Mild atherosclerotic plaques with the distal left common iliac artery with no stenosis. Calcified atherosclerotic disease to the left internal iliac artery with no stenosis or occlusion. Normal left external iliac artery with no stenosis. Left femoral/popliteal arteries: Calcified atherosclerotic disease throughout the left superficial femoral artery, more severe distally with no severe stenosis or occlusion. Minimal flow within the distal superficial femoral artery/popliteal artery consistent with high-grade stenosis. Minimal plaque at the left common femoral artery with no stenosis. Left calf/foot arteries: Minimal to no contrast visualized within the tibioperoneal trunk suggestive of severe stenosis to near occlusion. Severe atherosclerotic disease through the anterior tibial artery with intermittent visualization consistent with occlusion. Minimal visualization of the peroneal artery with multiple areas suggestive of occlusions. Severe calcified atherosclerotic disease of the posterior tibial artery with multiple areas of severe stenosis. Multiple areas of very short segment absent flow within the cephalad portion suggestive of severe narrowing or short segment occlusions. LOWER EXTREMITY: Bones/joints: No acute fracture. No dislocation. Soft tissues: Unremarkable. No abnormal contrast enhancement. IMPRESSION: 1. Severe disease through the trifurcation vessels with suggestion of occlusion of the anterior tibial and peroneal artery. 2. Intermittent flow within the proximal left posterior tibial artery suggestive of high-grade stenosis/near occlusion to occlusion. 3. Question severe stenosis to near occlusion of the tibioperoneal trunk. Electronically signed by: Eun Tillman MD 07/27/23 00:43 AM Discharge Plan Visit Data Chief Complaint: Leg Injury/Pain Stated Complaint: PAIN POSTERIOR MID THIGH ED Provider: Will Zuniga Discharge Problem: Atrial fibrillation, new onset, Acute pain of left thigh, Elevated troponin I level, Thrombocytopenia, Arterial occlusion Patient Disposition: Admitted As Inpatient Discharge Instructions Interventions: ED Discharge Assessment Last Done: 07/27/23 00:32
[2023-07-26 21:51] LABS: INR 1.1 (0.9-1.1); Partial Thromboplastin Time 27 Seconds (21-31); Prothrombin Time 12.3 Seconds (9.0-12.0)
[2023-07-26 21:56] LABS: Magnesium 1.8 mg/dl (1.7-2.4)
[2023-07-26 21:57] LABS: Troponin I High Sensitivity 64.5 pg/ml (0-20)
[2023-07-26 22:12] LABS: Thyroid Stimulating Hormone 1.42 uIu/ml (0.300-4.500)
--- NOTE | 2023-07-26 22:38 | Ultrasound Report ---
Exam(s): US VENOUS LEFT LOWER EXTREMITY EXAM: US Duplex Left Lower Extremity Veins CLINICAL HISTORY: Reason for exam: thigh pain. TECHNIQUE: Real-time duplex ultrasound scan of the left lower extremity veins integrating B-mode two-dimensional vascular structure, Doppler spectral analysis, color flow Doppler imaging and compression. COMPARISON: No relevant prior studies available. FINDINGS: Deep veins: Unremarkable. No DVT of the LEFT lower extremity. Superficial veins: Unremarkable. No thrombus in the visualized great saphenous vein. Soft tissues: No acute findings. No popliteal cyst. IMPRESSION: No DVT of the LEFT lower extremity. Electronically signed by: Edmundo Beckford MD 07/26/23 22:37 PM
--- NOTE | 2023-07-26 22:54 | Ultrasound Report ---
Exam(s): US ARTERIAL LEFT LOWER EXTREMITY EXAM: US Duplex Left Lower Extremity Arteries CLINICAL HISTORY: Reason for exam: pain. TECHNIQUE: Real-time duplex ultrasound scan of the left lower extremity arteries integrating B-mode two-dimensional vascular structure, Doppler spectral analysis and color flow Doppler imaging. COMPARISON: No relevant prior studies available. FINDINGS: Left common femoral artery: No acute findings. No occlusion or significant stenosis on color flow and spectral Doppler imaging. Normal waveform. Left superficial femoral artery: No acute findings. No occlusion or significant stenosis on color flow and spectral Doppler imaging. Normal waveform. Left popliteal artery: No acute findings. No occlusion or significant stenosis on color flow and spectral Doppler imaging. Normal waveform. Left calf/foot arteries: No flow is detected within the left posterior tibial artery. Left anterior tibial artery is patent with multiphasic waveforms. Soft tissues: Unremarkable. IMPRESSION: No flow is detected within the left posterior tibial artery. No hemodynamically significant left femoral-popliteal artery disease. Electronically signed by: William Abarca M.D. 07/26/23 22:53 PM
--- NOTE | 2023-07-27 00:05 | History & Physical Report ---
Date of Service July 26, 2023 Assessment & Plan (1) Acute pain of left thigh: Plan: 88yo male presenting with acute pain in the left thigh. Found to have no flow in the left posterior tibial artery. Presently without pain. -Admit to medical with telemetry -CTA obtained - awaiting formal read -Continue Heparin gtt initiated in the ER -Vascular Surgery consultation appreciated -Percocet PRN -Check CK and Lactate levels (2) Elevated troponin I level: Plan: Patient denies chest pain. Troponin mildly elevated at 64.5 -Telemetry monitoring -Repeat troponin (3) BPH with urinary obstruction: Plan: Chronic. Patient incontinent of urine - wears adult diapers -Continue Flomax 0.4mg po qHS -Monitor UOP (4) Essential hypertension: Plan: Chronic. Mildly hypertensive at present 146/85. -Pain control -Continue Lisinopril 10mg po qAM -Continue Metoprolol 25mg po qAM -Monitor BP (5) Pancytopenia: Plan: Patient with pancytopenia, normochromic/normocytic anemia -Repeat CBC in AM History of Present Illness Chief Complaint: left leg pain Primary Care Provider: Bernie Hair MD Keith Shipman is a pleasant 88yo male with history of CAD, HTN, GERD presenting from home with acute onset pain in the LLE. Patient was in his usual state of health today. He went to [employer] in the morning without difficulty. He was sitting down to supper this afternoon around 13:00 when he developed severe pain in his left anterior thigh with pain in his posterior thigh as well. The pain radiated to his knee. He called his grandson because he was unable to get up from his chair. He was unable to walk due to pain. No history of trauma or falls. No history of blood clots. Additionally patient denies chest pain, cough, abdominal pain, nausea, vomiting, diarrhea or constipation. No pain in the back. Patient is incontinent of urine and wears adult diapers - no complaints. In the ER he is afebrile, HD stable, NAD ER Course: Heparin drip Allergies Allergy/AdvReac Type Severity Reaction Status Date / Time No Known Allergies Allergy Verified 07/26/23 22:51 Home Medications Medication Instructions Recorded Confirmed Type esomeprazole magnesium 20 mg 20 mg PO QAM 10/21/18 07/26/23 History capsule,delayed release lisinopril 10 mg tablet 10 mg PO QAM 10/21/18 07/26/23 History metoprolol succinate 25 mg 25 mg PO QAM 01/26/23 07/26/23 History tablet,extended release 24 hr oxycodone-acetaminophen 7.5 mg-325 1 tab PO Q8H PRN pain #7 tabs 06/04/23 07/26/23 Rx mg tablet (Percocet) tamsulosin 0.4 mg capsule 0.4 mg PO HS #30 caps 06/04/23 07/26/23 Rx Past Med/Surg History Medical History BPH (benign prostatic hyperplasia) Thrombocytopenia History of bladder stone Urinary incontinence CAD (coronary artery disease) Non-obstructive Follows with PH Cardio Aortic valve disease s/p TAVR (2016) Heart attack 2020, r/t Covid per patient (AKIN Muro) History of COVID-19 04/2021 Kidney stones Obesity GERD (gastroesophageal reflux disease) Hypertension Surgical History History of colonoscopy History of carpal tunnel release R/L History of tooth extraction History of tonsillectomy History of adenoidectomy History of cystoscopy Cystoscopy, ureteroscopy, left stent (10/21/18): LMA#5 at [facility] (converted from MAC to GA as patient not tolerating MAC well per anesthesia record). Cystoscopy, ureteroscopy, laser litho, basket stone extraction, stent exchange (11/03/18): LMA#5 at [facility] History of knee replacement R/L (left x2) History of hernia repair History of appendectomy History of heart valve replacement TAVR (2016) Family History Grandfather (Paternal) Family history of diabetes mellitus Social History Smoking Status: Never smoker Second Hand Exposure: No; Do You Dip or Chew Tobacco: No; Hx Alcohol Use: No Hx Substance Use: No Preferred Language: Wolof Communication Ability: Effective Communication Ability Comment: pt is hard of hearing, states he does not wear hearing aides Wwe Wrestler Required: No Beliefs That Will Affect Care: None Current Living Situation: Alone Current Living Situation Comment: son lives across the street from patient Feels Safe at Home: Yes Assistive Devices: Cane, Glasses, Hearing Aid - Bilateral and Walker Review of Systems Review of Systems: All systems reviewed & are unremarkable except as noted in HPI & below Physical Exam Physical Exam: General: patient resting comfortably, NAD, non-toxic in appearance, AA&O x 4 Skin: warm, dry, intact, no rashes or lesions HEENT: NC/AT, PERRL, EOMI, anicteric sclera, conjunctiva without injection, external ear normal to inspection and nontender, nares patent, moist mucus membranes, dentition intact, no oropharyngeal lesions, neck supple, trachea midline, no LAD, no thyromegaly, no JVD Heart: +S1/S2, regular, no m/r/g Lungs: equal air entry bilaterally, no rales/rhonchi/wheezes Abd: +BS, soft, NT/ND, no masses/organomegaly/ascites Ext: LLE cool to touch, palpable DP pulses, no PT pulse Chronic venous stasis changes on bilateral shins. Some muscle fasciculations/spasm noted on left calf. Weak left femoral pulse palpated. Neuro: nonfocal, patient AA&O x 4, speech intact, no facial droop, moving all extremities on command with equal strength 5/5 Results & Data Results & Data Vital Signs (Past 12 Hours) Vital Signs Temp Pulse Pulse Resp BP BP Pulse Ox 07/26/23 22:24 88 18 146/85 H 96 07/26/23 20:27 104 H 20 96 07/26/23 20:27 36.7 C 101 H 22 155/90 H 97 O2 Del Method 07/26/23 22:24 Room Air 07/26/23 20:27 Room Air 07/26/23 20:27 Room Air Laboratory Results Laboratory Results WBC 4.29 K/ul (4.8-10.8) L 07/26/23 20:24 RBC 3.93 M/uL (4.70-6.10) L 07/26/23 20:24 Hgb 10.9 g/dl (14.0-18.0) L 07/26/23 20:24 Hct 35.3 % (42.0-52.0) L 07/26/23 20:24 MCV 89.8 fL (80.0-100.0) 07/26/23 20: MCH 27.7 pg (25.0-34.0) 07/26/23 20: MCHC 30.9 g/dL (32.0-36.0) L 07/26/23 20: RDW Std Deviation 50.3 fL (36.4-46.3) H 07/26/23: RDW Coeff of Catie 15.3 % (11.5-14.5) H 07/26/23 20: Plt Count 60 K/uL (130-400) L 07/26/23 20: Immature Gran % (Auto) 0.5 % 07/26/23 20: Neut % (Auto) 68.7 % 07/26/23 20: Lymph % (Auto) 17.7 % 07/26/23 20: [place] % (Auto) 11.7 % 07/26/23 20: Eos % (Auto) 1.2 % 07/26/23 20: Baso % (Auto) 0.2 % 07/26/23 20:24 Neut # (Auto) 2.95 K/uL (1.40-6.50) 07/26/23 20: Lymph # (Auto) 0.76 K/uL (1.20-3.40) L 07/26/23 20:24 [place] # (Auto) 0.50 K/uL (0.11-0.59) 07/26/23 20: Eos # (Auto) 0.05 K/uL (0.00-0.50) 07/26/23 20: Baso # (Auto) 0.01 K/uL (0.00-0.20) 07/26/23 20:24 Immature Gran # (Auto) 0.02 K/uL (0.01-0.20) 07/26/23 20: PT 12.3 Seconds (9.0-12.0) H 07/26/23 20:24 INR 1.1 (0.9-1.1) 07/26/23 20: APTT 27 Seconds (21-31) 07/26/23 20: PTT Ratio 1.0 07/26/23 20: Sodium 140 mmol/L (136-145) 07/26/23 20:24 Potassium 4.8 mmol/L (3.5-5.1) 07/26/23 20:24 Chloride 109 mmol/L (98-107) H 07/26/23 20:24 Carbon Dioxide 23 mmol/L (21-32) 07/26/23 20:24 Anion Gap 8 (3-11) 07/26/23 20:24 BUN 31 mg/dl (6-23) H 07/26/23 20:24 Creatinine 1.66 mg/dl (0.6-1.4) H 07/26/23 20:24 Est Cr Clr Drug Dosing 40.9 ml/min 07/26/23 20:24 Est GFR ( Amer) 42.6 ml/min 07/26/23 20:24 Est GFR (Non-Af Amer) 36.8 ml/min 07/26/23 20:24 BUN/Creatinine Ratio 18.7 (10-20) 07/26/23 20:24 Glucose 149 mg/dl (70-99(Fasting)) H 07/26/23 20:24 Calcium 9.2 mg/dl (8.6-10.3) 07/26/23 20:24 Magnesium 1.8 mg/dl (1.7-2.4) 07/26/23 20:24 Total Bilirubin 0.6 mg/dl (0.2-1.0) 07/26/23 20:24 AST 18 U/L (13-39) 07/26/23 20:24 ALT 15 U/L (7-52) 07/26/23 20:24 Alkaline Phosphatase 64 U/L (34-104) 07/26/23 20:24 Troponin I High Sens 64.5 pg/ml (0-20) H* 07/26/23 20:24 Total Protein 7.1 gm/dl (6.0-8.3) 07/26/23 20:24 Albumin 4.0 gm/dl (3.4-5.0) 07/26/23 20:24 Globulin 3.1 gm/dl (2.5-4.0) 07/26/23 20:24 Albumin/Globulin Ratio 1.3 (0.9-2) 07/26/23 20:24 TSH 1.420 uIu/ml (0.300-4.500) 07/26/23 20:24 Impressions Venous Doppler Study 07/26/23 21:16 Exam(s): US VENOUS LEFT LOWER EXTREMITY EXAM: US Duplex Left Lower Extremity Veins CLINICAL HISTORY: Reason for exam: thigh pain. TECHNIQUE: Real-time duplex ultrasound scan of the left lower extremity veins integrating B-mode two-dimensional vascular structure, Doppler spectral analysis, color flow Doppler imaging and compression. COMPARISON: No relevant prior studies available. FINDINGS: Deep veins: Unremarkable. No DVT of the LEFT lower extremity. Superficial veins: Unremarkable. No thrombus in the visualized great saphenous vein. Soft tissues: No acute findings. No popliteal cyst. IMPRESSION: No DVT of the LEFT lower extremity. Electronically signed by: Edmundo Beckford MD 07/26/23 22:37 PM Duplex Scan Lower Extremity Artery 07/26/23 21:27 Exam(s): US ARTERIAL LEFT LOWER EXTREMITY EXAM: US Duplex Left Lower Extremity Arteries CLINICAL HISTORY: Reason for exam: pain. TECHNIQUE: Real-time duplex ultrasound scan of the left lower extremity arteries integrating B-mode two-dimensional vascular structure, Doppler spectral analysis and color flow Doppler imaging. COMPARISON: No relevant prior studies available. FINDINGS: Left common femoral artery: No acute findings. No occlusion or significant stenosis on color flow and spectral Doppler imaging. Normal waveform. Left superficial femoral artery: No acute findings. No occlusion or significant stenosis on color flow and spectral Doppler imaging. Normal waveform. Left popliteal artery: No acute findings. No occlusion or significant stenosis on color flow and spectral Doppler imaging. Normal waveform. Left calf/foot arteries: No flow is detected within the left posterior tibial artery. Left anterior tibial artery is patent with multiphasic waveforms. Soft tissues: Unremarkable. IMPRESSION: No flow is detected within the left posterior tibial artery. No hemodynamically significant left femoral-popliteal artery disease. Electronically signed by: William Abarca M.D. 07/26/23 22:53 PM Code Status & VTE Plan VTE Prophylaxis Plan VTE Prophylaxis will be ordered: Yes PG Care Time/CCT Total # of Minutes Spent Total Time Spent with Patient: Total time spent is greater than 50% in coordination of care (as documented) at patient's floor/unit and/or counseling patient: Coding Level of Care Code 21945 INT INP/OBS CARE 2/55MIN Diagnoses Acute pain of left thigh M79.652 Elevated troponin I level R79.89 BPH with urinary obstruction N40.1; N13.8 Essential hypertension I10 Pancytopenia D61.818
[2023-07-27] MEDS: OPTIRAY 320 125ml IV ONE (00:08)
[2023-07-27] MEDS: HEPARIN SODIUM/DEXTROSE 25,000 UNITS/500 ML BAG IV SCH (00:08)
[2023-07-27] MEDS: SODIUM CHLORIDE 0.9% 500 ML IV ONE (00:27)
--- NOTE | 2023-07-27 00:44 | CT Scan Report ---
Exam(s): CTA EXTREMITY LEFT LOWER W/WO Contrast IV Amt: 116 ML OPTIRAY 320 EXAM: CT Angiography of the Left Lower Extremity With Intravenous Contrast CLINICAL HISTORY: Reason for exam: left thigh pain. TECHNIQUE: Axial computed tomographic angiography images of the left lower extremity with intravenous contrast. CTDI is 35.62 mGy and DLP is 1753. 78 mGy-cm. Automated exposure control was utilized for the study. A dose lowering technique was utilized adhering to the principles of ALARA. MIP reconstructed images were created and reviewed. CONTRAST: Patient received 116 ML OPTIRAY 320 of IV contrast COMPARISON: None. FINDINGS: VASCULATURE: Left iliac arteries: Mild atherosclerotic plaques with the distal left common iliac artery with no stenosis. Calcified atherosclerotic disease to the left internal iliac artery with no stenosis or occlusion. Normal left external iliac artery with no stenosis. Left femoral/popliteal arteries: Calcified atherosclerotic disease throughout the left superficial femoral artery, more severe distally with no severe stenosis or occlusion. Minimal flow within the distal superficial femoral artery/popliteal artery consistent with high-grade stenosis. Minimal plaque at the left common femoral artery with no stenosis. Left calf/foot arteries: Minimal to no contrast visualized within the tibioperoneal trunk suggestive of severe stenosis to near occlusion. Severe atherosclerotic disease through the anterior tibial artery with intermittent visualization consistent with occlusion. Minimal visualization of the peroneal artery with multiple areas suggestive of occlusions. Severe calcified atherosclerotic disease of the posterior tibial artery with multiple areas of severe stenosis. Multiple areas of very short segment absent flow within the cephalad portion suggestive of severe narrowing or short segment occlusions. LOWER EXTREMITY: Bones/joints: No acute fracture. No dislocation. Soft tissues: Unremarkable. No abnormal contrast enhancement. IMPRESSION: 1. Severe disease through the trifurcation vessels with suggestion of occlusion of the anterior tibial and peroneal artery. 2. Intermittent flow within the proximal left posterior tibial artery suggestive of high-grade stenosis/near occlusion to occlusion. 3. Question severe stenosis to near occlusion of the tibioperoneal trunk. Electronically signed by: Eun Tillman MD 07/27/23 00:43 AM
[2023-07-27] MEDS ORDERED: ONDANSETRON INJ 2 MG/ML 2 ML VIAL IV PRN (01:03)
[2023-07-27] MEDS ORDERED: oxyCODONE/APAP 7.5/325MG TAB PO PRN (01:03)
[2023-07-27] MEDS ORDERED: DOCUSATE SODIUM 100 MG CAP PO PRN (01:03)
[2023-07-27] MEDS: Heparin IV Adult Wt-Based Standard *NO* INITIAL Bolus Protocol IV STA (01:11)
[2023-07-27 06:41] LABS: Hematocrit (blood only) 30.9 % (42.0-52.0); Hemoglobin 9.6 g/dl (14.0-18.0); Mean Corpuscular Hemoglobin 27.7 pg (25.0-34.0); Mean Corpuscular Hgb Conc 31.1 g/dL (32.0-36.0); Platelet Count 54 K/uL (130-400); RDW Coefficient of Variation 15.4 % (11.5-14.5); Red Blood Count 3.47 M/uL (4.70-6.10)
[2023-07-27 06:57] LABS: Calcium 8.7 mg/dl (8.6-10.3); Creatinine Clr Calc Pharmacy 48.5 ml/min; Est GFR (African American) 52.4 ml/min; Est GFR (Non-African American) 45.2 ml/min; Potassium 4.1 mmol/L (3.5-5.1)
[2023-07-27 07:05] LABS: Troponin I High Sensitivity 65.1 pg/ml (0-20)
[2023-07-27 07:37] LABS: ANTI-Xa, UFH(UnfractionatedHep 0.53 IU/ml (0.3-0.7)
[2023-07-27] MEDS: lisinopril 10 MG TAB PO SCH (08:47)
[2023-07-27] MEDS: PANTOprazole 40 MG TAB PO SCH (08:47)
[2023-07-27] MEDS: METOPROLOL SUCC 25MG EXT REL TAB PO SCH (08:47)
--- NOTE | 2023-07-27 09:56 | Consultation ---
Date of Consultation July 27, 2023 Assessment & Plan (1) Peripheral arterial disease: Pt with mild PAD and +2 palpable DP pulse. Foot is well perfused. No evidence of acute arterial occlusion or severe PAD warranting surgical intervention. This is unrelated to his proximal thigh pain worsened with hip flexion. Would eval for likely musculoskeletal cause. Discussed with pt, he is aware. Please call if needed. History of Present Illness Reason for Consultation: PAD Attending Physician: David Rivas MD History of Present Illness 88 yo m with hx of HTN, thrombocytopenia, BPH, nephrolithiasis, GERD, admitted with new onset a fib and L thigh pain, seen in consultation today for PAD noted on imaging. Pt states he does not ambulate much, but is able to do his normal daily activities without claudication sx. States he went to [employer] in the morning yesterday and when he arrived home and sat down at the table to eat l unch, he developed sudden L proximal thigh pain when he attempted to lift his L leg to place it under the table. States the pain was severe and never had this pain before. When lying or sitting, much milder aching pain in the area, but pain is exacerbated by attempting to lift his L leg.Denies any known injury or radiation of the pain. Denies any hx of PAD in past. Denies FIGUEROA, fever, chest pain, SOB, abd pain, N/V, rest pain, claudication, discoloration of his toes, other complaints. LLE arterial US demonstrates mild diffuse disease and occlusion of L post tib art, with 2 vessel runoff to foot. CTA LLE demonstrates diffuse disease and post tib occlusion. Significant artifact from L TKA. Allergies Allergy/AdvReac Type Severity Reaction Status Date / Time No Known Allergies Allergy Verified 07/26/23 22:51 Home Medications Medication Instructions Recorded Confirmed Type esomeprazole magnesium 20 mg 20 mg PO QAM 10/21/18 07/26/23 History capsule,delayed release lisinopril 10 mg tablet 10 mg PO QAM 10/21/18 07/26/23 History metoprolol succinate 25 mg 25 mg PO QAM 01/26/23 07/26/23 History tablet,extended release 24 hr oxycodone-acetaminophen 7.5 mg-325 1 tab PO Q8H PRN pain #7 tabs 06/04/23 07/26/23 Rx mg tablet (Percocet) tamsulosin 0.4 mg capsule 0.4 mg PO HS #30 caps 06/04/23 07/26/23 Rx Patient History Medical History BPH (benign prostatic hyperplasia) Thrombocytopenia History of bladder stone Urinary incontinence CAD (coronary artery disease) Non-obstructive Follows with PH Cardio Aortic valve disease s/p TAVR (2016) Heart attack 2020, r/t Covid per patient ([facility]) History of COVID-19 04/2021 Kidney stones Obesity GERD (gastroesophageal reflux disease) Hypertension Surgical History History of colonoscopy History of carpal tunnel release R/L History of tooth extraction History of tonsillectomy History of adenoidectomy History of cystoscopy Cystoscopy, ureteroscopy, left stent (10/21/18): LMA#5 at [facility] (converted from MAC to GA as patient not tolerating MAC well per anesthesia record). Cystoscopy, ureteroscopy, laser litho, basket stone extraction, stent exchange (11/03/18): LMA#5 at [facility] History of knee replacement R/L (left x2) History of hernia repair History of appendectomy History of heart valve replacement TAVR (2016) Family History Grandfather (Paternal) Family history of diabetes mellitus Social History Smoking Status: Never smoker Second Hand Exposure: No; Do You Dip or Chew Tobacco: No; Hx Alcohol Use: No Hx Substance Use: No Preferred Language: Greenlandic Communication Ability: Effective Online Merchandising Specialist Required: No Beliefs That Will Affect Care: None Current Living Situation: Alone Current Living Situation Comment: son lives across the street from patient Feels Safe at Home: Yes Assistive Devices: Cane, Glasses, Hearing Aid - Bilateral and Walker Review of Systems Review of Systems: All systems reviewed & are unremarkable except as noted in HPI & below Physical Exam Constitutional: WD/WN, vitals as above + obese, cooperative and comfortable; not in distress ENMT: Ears: + hearing impairment ([employer] [place]) Neck: trachea midline Respiratory: normal respiratory effort, lungs clear to auscultation Auscultation: + diminished lung sounds Cardiovascular: Rate/Rhythm: + irregularly irregular Vessels: femoral pulses present, posterior tibial pulses present (LLE nonpalpable, RLE +1), dorsalis pedis pulses present (LLE +2, RLE +2) and radial pulses present; + abnormal peripheral pulses Extremities: normal capillary refill and + edema (mild BLE) Gastrointestinal (Abdomen): Inspection/Auscultation: abdomen normal to inspection and normal bowel sounds Percussion/Palpation: abdomen soft; abdomen nontender Musculoskeletal: no cyanosis or clubbing, extremities motor strength 5/5 (Minimal tenderness L proximal thigh, ) +pain with attempting hip flexion prox a nterolateral thigh/groin Skin: + rash (LLE anterior fisher, consistent wi th chronic venous insufficiency) Neurologic: moves all extremities and awake; no focal motor deficits and not confused Psychiatric: A+Ox3, euthymic affect Results & Data Vital Signs (Past 12 Hours) Vital Signs Temp Pulse Pulse Resp BP BP Pulse Ox 07/27/23 07:34 36.7 C 87 16 149/74 H 99 07/27/23 03:08 36.4 C L 78 18 150/78 H 98 07/27/23 01:23 07/27/23 01:21 36.8 C 79 19 163/78 H 97 07/27/23 00:00 97 H 16 157/92 H 96 07/26/23 22:24 88 18 146/85 H 96 O2 Del Method 07/27/23 07:34 Room Air 07/27/23 03:08 Room Air 07/27/23 01:23 Room Air 07/27/23 01:21 Room Air 07/27/23 00:00 Room Air 07/26/23 22:24 Room Air
--- NOTE | 2023-07-27 11:06 | Hospitalist Progress Note ---
Date of Service July 27, 2023 Assessment & Plan (1) Hematoma of left thigh: Plan: appears to be spontaneous rather than traumatic chronic thrombocytopenia certainly does not help this situation although the count still remains >50 no recent h/o fall, left leg injury, or trauma he was coughing considerably at home from his respiratory illness - perhaps valsalva type physiology from coughing led to rupture of a vessel in the thigh causing the bleed?? hematoma is in the adductor musculature which explains the severe pain with moving the left hip repeat H/H this afternoon is stable, and a repeat u/s of L thigh shows that the hematoma is 15cm in length - same as the CT study plan - * cold packs for about 48 hours, then switch to heat * tylenol/pain meds prn * as soon as I received word from radiology about the hematoma the heparin drip was STOPPED immediately * no asa or NSAIDs * CBC in am * if any further drop in H/H then obtain another ultrasound of left thigh * low threshold for gen surg or orthopedic consultation if the hematoma expands * if there is ongoing bleeding by way of serial H/H's or imaging study, and if platelets drop to <50, would consider platelet transfusion of note - INR wnl on labs (2) Atrial fibrillation, new onset: Plan: no prior h/o a.fib per records seems asymptomatic from such rate control is improved today he was started on heparin drip overnight but this was promptly stopped when I received notification from the radiologist about the L thigh hematoma continue metoprolol succ K, Mag, TSH all wnl repeat echo ordered obviously systemic anticoagulation is simply not possible at this time due to #1 above (3) Pancytopenia: Plan: etiology? present dating back to at least fall 2022 I don't have any labs from [id number] he did not have pancytopenia prior to 2019 based on limited records, however B12/folate/TSH wnl no prior h/o liver disease will check peripheral smear in am CBC am for stability as well consider SPEP/UPEP although total protein level is not elevated he will need hematology f/u as he may have a primary bone marrow disorder I made his daughter aware of this finding (4) Acute pain of left thigh: Plan: 2nd to #1 see above (5) Elevated troponin I level: Plan: peak HS trop 65 likely 2nd to myocardial demand ischemia in setting of a.fib with RVR, acute bleeding into L thigh, etc no evidence of ACS (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 cont flomax (7) Essential hypertension: Plan: cont Metoprolol succ 25mg daily cont lisinopril 10mg daily may have to reduce dose or hold lisinopril if additional rate control with metoprolol is needed (8) Aortic valve disease: Plan: s/p TAVR 2016 last echo 2022 (scanned in chart - done via [facility] system) this showed intact valve function obtaining another echo due to new-onset a.fib (9) CAD (coronary artery disease): Plan: history of non-obstructive disease cath performed 07/14/22 at [facility] with results as below - he was not taking aspirin or a statin at home - unclear why (no aspirin - due to prior h/o hematuria??) was on BB and FAITH at home - cont both (10) Morbid obesity: Plan: BMI 39-40 (11) Hyperglycemia: Plan: fasting glucose 161 this am I don't see an a1c in our system check Hba1c tomorrow am (12) Peripheral arterial disease: Plan: there is evidence of PAD on arterial studies of left leg but this is NOT the cause of his left leg pain at ER presentation appreciate Dr Hill's consultation nothing acute needed for his PAD Plan DVT proph - STOP heparin drip avoid ALL chemical DVT Proph at this time 2nd to #1 will need PT/OT evals due to severely restricted ROM of left leg daughter extensively updated by phone this evening Admission and Anticipated Discharge Date Admission Date: July 26, 2023 Subjective patient resting in bed during the visit he just had an episode of urinary incontinence this is chronic for him, and he reports wearing Depends at home for such he continues with L thigh pain he points to middle of the proximal thigh as the location of his pain the pain then radiates down the left lateral leg to the knee' pain does not travel beyond the knee denies any back pain denies any fall or trauma or injury at home that precipitated his pain he typically uses a walker at home for ambulation also reports a cold/cough/chest congestion for 2 weeks denies dyspnea tele overnight - a.fib, rates <100 Review of Systems 2 Review of Systems: gen - no fevers or chills cv - no chest pain or orthopnea pulm - cough, dry GI - no abd pain or N/V neuro - denies paresthesias of left leg Physical Exam 2 Physical Exam: gen - morbidly obese, in pain any time he moves the left leg; coughing neck - no JVD mouth - MMM heart - irregularly irregular, s1 s2, no obvious murmur lungs - CTA b/l; no rales; no wheeze abd - soft, slightly tender LLQ, BS+, no HSM, no distension ext - left thigh is larger than the right thigh vascular - pulses b/l feet 1-2+ b/l; popliteal pulses 2+ on right, 1+ on left musculo - passive extension of left hip is severely restricted; he has pain as the leg gets to 30 degrees; passive abduction/adduction causes SEVERE pain in the left groin/left prox thigh; passive ROM of left knee does not cause pain; nontender to palpation over the trochanteric bursa left hip; back - nontender to palpation over l-spine, SI joint on L, or left paraspinal muscles neuro - strength 5/5 x b/l legs; DTRs 1+ b/l patellar Results & Data Results & Data Vital Signs (Past 12 Hours) Vital Signs Temp Pulse Pulse Resp BP BP Pulse Ox 07/27/23 07:34 36.7 C 87 16 149/74 H 99 07/27/23 03:08 36.4 C L 78 18 150/78 H 98 07/27/23 01:23 07/27/23 01:21 36.8 C 79 19 163/78 H 97 07/27/23 00:00 97 H 16 157/92 H 96 O2 Del Method 07/27/23 07:34 Room Air 07/27/23 03:08 Room Air 07/27/23 01:23 Room Air 07/27/23 01:21 Room Air 07/27/23 00:00 Room Air Laboratory Results Laboratory Results - last 24 hr 07/27/23 07/27/23 07/27/23 06:11 06:12 12:30 WBC 3.40 L RBC 3.47 L Hgb 9.6 L Hct 30.9 L MCV 89.0 MCH 27.7 MCHC 31.1 L RDW Std Deviation 50.0 H RDW Coeff of Catie 15.4 H Plt Count 54 L ESR 19 Heparin Anti-Xa, Unfract 0.53 Sodium 140 Potassium 4.1 Chloride 111 H Carbon Dioxide 23 Anion Gap 6 BUN 28 H Creatinine 1.40 Est Cr Clr Drug Dosing 48.5 Est GFR ( Amer) 52.4 Est GFR (Non-Af Amer) 45.2 BUN/Creatinine Ratio 20.0 Glucose 161 H Lactate 0.8 Calcium 8.7 Total Creatine Kinase 80 Troponin I High Sens 65.1 H* C-Reactive Protein 0.98 H Vitamin B12 728 Folate 11.35 SARS-CoV-2 (PCR) NEGATIVE Influenza Type A (PCR) Negative Influenza Type B (PCR) Negative RSV (RT-PCR) Negative 07/27/23 13:00 WBC RBC Hgb 10.0 L Hct 32.6 L MCV MCH MCHC RDW Std Deviation RDW Coeff of Catie Plt Count ESR Heparin Anti-Xa, Unfract Sodium Potassium Chloride Carbon Dioxide Anion Gap BUN Creatinine Est Cr Clr Drug Dosing Est GFR ( Amer) Est GFR (Non-Af Amer) BUN/Creatinine Ratio Glucose Lactate Calcium Total Creatine Kinase Troponin I High Sens C-Reactive Protein Vitamin B12 Folate SARS-CoV-2 (PCR) Influenza Type A (PCR) Influenza Type B (PCR) RSV (RT-PCR) Diagnostic Findings Venous Doppler Study 07/26/23 21:16 Exam(s): US VENOUS LEFT LOWER EXTREMITY EXAM: US Duplex Left Lower Extremity Veins CLINICAL HISTORY: Reason for exam: thigh pain. TECHNIQUE: Real-time duplex ultrasound scan of the left lower extremity veins integrating B-mode two-dimensional vascular structure, Doppler spectral analysis, color flow Doppler imaging and compression. COMPARISON: No relevant prior studies available. FINDINGS: Deep veins: Unremarkable. No DVT of the LEFT lower extremity. Superficial veins: Unremarkable. No thrombus in the visualized great saphenous vein. Soft tissues: No acute findings. No popliteal cyst. IMPRESSION: No DVT of the LEFT lower extremity. Electronically signed by: Edmundo Beckford MD 07/26/23 22:37 PM Duplex Scan Lower Extremity Artery 07/26/23 21:27 Exam(s): US ARTERIAL LEFT LOWER EXTREMITY EXAM: US Duplex Left Lower Extremity Arteries CLINICAL HISTORY: Reason for exam: pain. TECHNIQUE: Real-time duplex ultrasound scan of the left lower extremity arteries integrating B-mode two-dimensional vascular structure, Doppler spectral analysis and color flow Doppler imaging. COMPARISON: No relevant prior studies available. FINDINGS: Left common femoral artery: No acute findings. No occlusion or significant stenosis on color flow and spectral Doppler imaging. Normal waveform. Left superficial femoral artery: No acute findings. No occlusion or significant stenosis on color flow and spectral Doppler imaging. Normal waveform. Left popliteal artery: No acute findings. No occlusion or significant stenosis on color flow and spectral Doppler imaging. Normal waveform. Left calf/foot arteries: No flow is detected within the left posterior tibial artery. Left anterior tibial artery is patent with multiphasic waveforms. Soft tissues: Unremarkable. IMPRESSION: No flow is detected within the left posterior tibial artery. No hemodynamically significant left femoral-popliteal artery disease. Electronically signed by: William Abarca M.D. 07/26/23 22:53 PM Lower Extremity CTA 07/26/23 23:21 Exam(s): CTA EXTREMITY LEFT LOWER W/WO Contrast IV Amt: 116 ML OPTIRAY 320 EXAM: CT Angiography of the Left Lower Extremity With Intravenous Contrast CLINICAL HISTORY: Reason for exam: left thigh pain. TECHNIQUE: Axial computed tomographic angiography images of the left lower extremity with intravenous contrast. CTDI is 35.62 mGy and DLP is 1753. 78 mGy-cm. Automated exposure control was utilized for the study. A dose lowering technique was utilized adhering to the principles of ALARA. MIP reconstructed images were created and reviewed. CONTRAST: Patient received 116 ML OPTIRAY 320 of IV contrast COMPARISON: None. FINDINGS: VASCULATURE: Left iliac arteries: Mild atherosclerotic plaques with the distal left common iliac artery with no stenosis. Calcified atherosclerotic disease to the left internal iliac artery with no stenosis or occlusion. Normal left external iliac artery with no stenosis. Left femoral/popliteal arteries: Calcified atherosclerotic disease throughout the left superficial femoral artery, more severe distally with no severe stenosis or occlusion. Minimal flow within the distal superficial femoral artery/popliteal artery consistent with high-grade stenosis. Minimal plaque at the left common femoral artery with no stenosis. Left calf/foot arteries: Minimal to no contrast visualized within the tibioperoneal trunk suggestive of severe stenosis to near occlusion. Severe atherosclerotic disease through the anterior tibial artery with intermittent visualization consistent with occlusion. Minimal visualization of the peroneal artery with multiple areas suggestive of occlusions. Severe calcified atherosclerotic disease of the posterior tibial artery with multiple areas of severe stenosis. Multiple areas of very short segment absent flow within the cephalad portion suggestive of severe narrowing or short segment occlusions. LOWER EXTREMITY: Bones/joints: No acute fracture. No dislocation. Soft tissues: Unremarkable. No abnormal contrast enhancement. IMPRESSION: 1. Severe disease through the trifurcation vessels with suggestion of occlusion of the anterior tibial and peroneal artery. 2. Intermittent flow within the proximal left posterior tibial artery suggestive of high-grade stenosis/near occlusion to occlusion. 3. Question severe stenosis to near occlusion of the tibioperoneal trunk. Electronically signed by: Eun Tillman MD 07/27/23 00:43 AM Chest X-Ray 07/27/23 11:00 XR chest 1V portable CLINICAL HISTORY: cough x 2 weeks COMPARISON STUDY: Chest radiograph April 19, 2023. FINDINGS: Prosthetic aortic valve is in place. Cardiomegaly is unchanged. No evidence for pulmonary edema. There is no consolidation to suggest pneumonia. There is no pneumothorax or pleural effusion. IMPRESSION: No acute cardiopulmonary findings. ACT 112: Negative or not required by law. Electronically signed by: Walter Steel M.D. 07/27/2023 11:50 AM Hip/Pelvis X-Ray 07/27/23 11:00 XR hip LT 2V w pelvis HISTORY: 88 years-old Male ?severe OA vs fracture vs other? Acute in the pelvis and left hip COMPARISON: CTA 07/26/2023 TECHNIQUE: AP view of the pelvis with 2 views of the left hip FINDINGS: Contrast noted within urinary bladder. Vascular calcifications within the pelvis. Mild to moderate osteoarthritis of the hips. IMPRESSION: 1. No acute fracture or dislocation. 2. Acute left-sided adductor intramuscular hematoma with active extravasation likely accounts for the patient's acute left hip/thigh pain. Please see the addendum for the CTA study from 07/26/2023. This was made as a call report at time of dictation. ACT 112: Negative or not required by law. The above report was generated using voice recognition software. It may contain grammatical, syntax or spelling errors. Electronically signed by: Shravan Mosqueda M.D. 07/27/2023 12:29 PM Vascular Ultrasound 07/27/23 14:39 US extremity non-vascular ltd CLINICAL HISTORY: L Thigh Hematoma, assess size COMPARISON STUDY: Left lower extremity CTA 07/26/2023. FINDINGS: There is again noted and intramuscular hematoma within the left adductor muscles. This is better appreciated on the prior CT. This measures approximately 15 cm in length. This remains unchanged. IMPRESSION: No significant change in the 15 cm intramuscular hematoma within the left adductor muscles. ACT 112: Negative or not required by law. Electronically signed by: Javi Ellis M.D. 07/27/2023 4:17 PM PG Care Time/CCT Total # of Minutes Spent Total Time Spent with Patient: Total time spent is greater than 50% in coordination of care (as documented) at patient's floor/unit and/or counseling patient: Coding Level of Care Code 94889 SUB INP/OBS CARE 3/50MIN Diagnoses Hematoma of left thigh S70.12XA Atrial fibrillation, new onset I48.91 Pancytopenia D61.818 Acute pain of left thigh M79.652 Elevated troponin I level R79.89 BPH with urinary obstruction N40.1; N13.8 Essential hypertension I10 Aortic valve disease I35.9 CAD (coronary artery disease) I25.10 Morbid obesity E66.01 Hyperglycemia R73.9 Peripheral arterial disease I73.9
--- NOTE | 2023-07-27 11:51 | XRay Report ---
XR chest 1V portable CLINICAL HISTORY: cough x 2 weeks COMPARISON STUDY: Chest radiograph April 19, 2023. FINDINGS: Prosthetic aortic valve is in place. Cardiomegaly is unchanged. No evidence for pulmonary e antonio. There is no consolidation to suggest pneumonia. There is no pneumothorax or pleural effusion. IMPRESSION: No acute cardiopulmonary findings. ACT 112: Negative or not required by law. Electronically signed by: Walter Steel M.D. 07/27/2023 11:50 AM
--- NOTE | 2023-07-27 12:30 | XRay Report ---
XR hip LT 2V w pelvis HISTORY: 88 years-old Male ?severe OA vs fracture vs other? Acute in the pelvis and left hip COMPARISON: CTA 07/26/2023 TECHNIQUE: AP view of the pelvis with 2 views of the left hip FINDINGS: Contrast noted within urinary bladder. Vascular calcifications within the pelvis. Mild to moderate os teoarthritis of the hips. IMPRESSION: 1. No acute fracture or dislocation. 2. Acute left-sided adductor intramuscular hematoma with active extravasation likely accounts for the patient's acute left hip/thigh pain. Please see the addendum for the CTA study from 07/26/2023. This was made as a call report at time of dictation. ACT 112: Negative or not required by law. The above report was generated using voice recognition software. It may contain grammatical, syntax o r spelling errors. Electronically signed by: Shravan Mosqueda M.D. 07/27/2023 12:29 PM
--- NOTE | 2023-07-27 12:53 | Electrocardiogram Report ---
Test Reason : Blood Pressure : / mmHG Vent. Rate : 107 BPM Atrial Rate : 000 BPM P-R Int : 000 ms QRS Dur : 092 ms QT Int : 350 ms P-R-T Axes : 000 -44 -09 degrees QTc Int : 467 ms Atrial fibrillation with rapid ventricular response Left anterior fascicular block Abnormal ECG No previous ECGs available Confirmed by Cliff Maciel ([id number]) on 07/27/2023 12:53:06 PM Referred By: REFERRED SELF Confirmed By:Cliff Maciel
[2023-07-27 13:27] LABS: Folate (Folic Acid),Ser orPlas 11.35 ng/ml (>5.38)
[2023-07-27 13:51] LABS: Hematocrit (blood only) 32.6 % (42.0-52.0)
[2023-07-27 14:05] LABS: Influenza A virus by PCR Negative (Neg); Influenza B virus by PCR Negative (Neg); RSV by PCR Negative (Neg); SARS CoV2 RNA(COVID-19) Ceph NEGATIVE (Negative)
[2023-07-27] MEDS: ACETAMINOPHEN 500 MG TAB PO SCH (14:30)
--- NOTE | 2023-07-27 16:18 | Ultrasound Report ---
US extremity non-vascular ltd CLINICAL HISTORY: L Thigh Hematoma, assess size COMPARISON STUDY: Left lower extremity CTA 07/26/2023. FINDINGS: There is again noted and intramuscular hematoma within the left adductor muscles. This is b sonya appreciated on the prior CT. This measures approximately 15 cm in length. This remains unchange d. IMPRESSION: No significant change in the 15 cm intramuscular hematoma within the left adductor muscl es. ACT 112: Negative or not required by law. Electronically signed by: Javi Ellis M.D. 07/27/2023 4:17 PM
[2023-07-27] MEDS: TAMSULOSIN HCL 0.4 MG CAP PO SCH (21:01)
[2023-07-28 06:43] LABS: Calcium 8.7 mg/dl (8.6-10.3); Potassium 4.4 mmol/L (3.5-5.1)
[2023-07-28 06:49] LABS: BUN Creatinine Ratio 20.7 (10-20); Creatinine Clr Calc Pharmacy 46.1 ml/min; Est GFR (African American) 50.2 ml/min; Est GFR (Non-African American) 43.3 ml/min
[2023-07-28 06:51] LABS: Hematocrit (blood only) 29.4 % (42.0-52.0); Hemoglobin 9.2 g/dl (14.0-18.0); Mean Corpuscular Hemoglobin 27.4 pg (25.0-34.0); Mean Corpuscular Hgb Conc 31.3 g/dL (32.0-36.0); Mean Corpuscular Volume 87.5 fL (80.0-100.0); Platelet Count 56 K/uL (130-400); RDW Coefficient of Variation 15.4 % (11.5-14.5); RDW Standard Deviation 49.6 fL (36.4-46.3); Red Blood Count 3.36 M/uL (4.70-6.10); White Blood Count 3.61 K/ul (4.8-10.8)
[2023-07-28 07:45] LABS: Estimated Average Glucose 114 mg/dl; Hemoglobin A1C 5.6 % (4.5-5.6)
[2023-07-28] MEDS: METOPROLOL TARTRATE 1 MG/ML VIAL IV STA (09:21)
[2023-07-28] MEDS: guaiFENesin 600 MG TABCR PO SCH (11:44)
[2023-07-28] MEDS: BENZONATATE 100 MG CAPSULE PO SCH (11:45)
--- NOTE | 2023-07-28 12:23 | XCELERA ---
[id number]
--- NOTE | 2023-07-28 16:29 | Hospitalist Progress Note ---
Date of Service July 28, 2023 Assessment & Plan (1) Hematoma of left thigh: Plan: left thigh pain was presenting complaint in the ED appears to be spontaneous rather than traumatic chronic thrombocytopenia certainly does not help this situation although the count still remains >50 no recent h/o fall, left leg injury, or trauma he was coughing considerably at home from his respiratory illness - perhaps valsalva type physiology from coughing led to rupture of a vessel in the thigh causing the bleed? hematoma is in the adductor musculature which explains the severe pain with moving the left hip serial H/H has been stable, repeat u/s of L thigh 07/27 shows that the hematoma is 15cm in length - same as the CT study plan - * cold packs for about 48 hours, then switch to heat * tylenol/pain meds prn * as soon as I received word from radiology about the hematoma the heparin drip was STOPPED immediately * no asa or NSAIDs * follow CBC * if any further drop in H/H then obtain another ultrasound of left thigh * low threshold for gen surg or orthopedic consultation if the hematoma expands * if there is ongoing bleeding by way of serial H/H's or imaging study, and if platelets drop to <50, would consider platelet transfusion of note - INR wnl on labs pain improved, exam stable, H/H stable on 07/28 (2) Atrial fibrillation, new onset: Plan: no prior h/o a.fib per records seems asymptomatic from such rate control is improved today he was started on heparin drip at admission but this was promptly stopped when found to have L thigh hematoma rapid Afib this am - improved after metoprolol 5 mg IV continue metoprolol succ - increase to 25 mg bid K, Mag, TSH all wnl Echo 07/28 reviewed - EF 55-60%, mod concentric LVH, mild RV dilation, no valvular disease, technically difficult study systemic anticoagulation is contraindicated at this time because of thigh hematoma, in the longer term his thrombocytopenia also increases the risk of bleeding if anticoagulated (3) Pancytopenia: Plan: Present since March 2023, reviewed previous labs - none in our system 2019- 2022, not present in 2019 Reviewed home meds and fill history - had a few Rx for antibiotics in Apr-May but this was after the onset of pancytopenia B12/folate/TSH wnl no prior h/o liver disease peripheral smear - reviewed report - was not diagnostic of any specific cause SPEP/UPEP ordered he will need hematology f/u as he may have a primary bone marrow disorder his daughter is aware of this finding (4) Acute pain of left thigh: Plan: 2nd to #1 see above (5) Elevated troponin I level: Plan: peak HS trop 65, flat trend likely 2nd to myocardial demand ischemia in setting of a.fib with RVR, acute bleeding into L thigh, etc no evidence of ACS (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 cont flomax (7) Essential hypertension: Plan: cont Metoprolol succ - increased cont lisinopril decrease to 5 mg may have to reduce dose or hold lisinopril if additional rate control with metoprolol is needed (8) Aortic valve disease: Plan: s/p TAVR 2016 last echo 2022 (scanned in chart - done via [facility] system) this showed intact valve function updated echo unchanged though aortic valve not well vizualized (9) CAD (coronary artery disease): Plan: history of non-obstructive disease cath performed 07/14/22 at [facility] with results as below - he was not taking aspirin or a statin at home - unclear why (no aspirin - due to prior h/o hematuria, or possibly thrombocytopenia?) was on BB and FAITH at home - cont both (10) Morbid obesity: Plan: BMI 39-40 (11) Hyperglycemia: Plan: fasting glucose 161 during this admission A1c 5.6% (12) Peripheral arterial disease: Plan: there is evidence of PAD on arterial studies of left leg but this is NOT the cause of his left leg pain at ER presentation appreciate Dr Hill's consultation nothing acute needed for his PAD Plan DVT proph - SCD PT/OT 07/28 - weakness, decreased mobility, decreased balance, pain related to hematoma, tachycardic during eval, ongoing rehab recommended daughter extensively updated by phone 07/27 daughter in law updated in room 07/28 Admission and Anticipated Discharge Date Admission Date: July 26, 2023 Subjective L medial thigh pain present but much improved compared to yesterday. Was able to stand with PT. Had episode of afib with rapid rate this AM. No dyspnea lightheadedness or chest pain. Physical Exam 2 Physical Exam: PHYSICAL EXAMINATION Last 24h vital signs reviewed, see documentation in flowsheet General: comfortable appearing, no distress HEENT: Normocephalic, atraumatic, pupils round and equal, sclerae anicteric, no conjunctival injection, moist mucus membranes Lungs: Normal respiratory effort. Clear to auscultation bilaterally. No RRW Heart: Regular rate and rhythm, no murmurs. No JVD Abdomen: Soft, nontender, nondistended. Bowel sounds present. Extremities: Warm, dry, well-perfused. No extremity edema. left thigh without swelling firmness or ecchymosis left lower extremity well-perfused Neuro: Alert and oriented x 4, face symmetric, moves 4 extremities well Psych: Normal affect and behavior Results & Data Results & Data Vital Signs (Past 12 Hours) Vital Signs Temp Pulse Pulse Resp BP BP Pulse Ox 07/28/23 15:29 36.4 C L 80 16 117/62 98 07/28/23 11:30 38.3 C H 88 15 121/72 96 07/28/23 09:36 93 H 104/63 07/28/23 09:21 169 H 123/78 07/28/23 09:06 37.0 C 169 H 20 123/78 94 07/28/23 08:00 07/28/23 07:27 36.9 C 81 14 134/81 97 O2 Del Method 07/28/23 15:29 Room Air 07/28/23 11:30 Room Air 07/28/23 09:36 07/28/23 09:21 07/28/23 09:06 Room Air 07/28/23 08:00 Room Air 07/28/23 07:27 Room Air Laboratory Results 07/28/23 05:31 07/28/23 05:31 PG Care Time/CCT Total # of Minutes Spent Total Time Spent with Patient: Total time spent is greater than 50% in coordination of care (as documented) at patient's floor/unit and/or counseling patient: Coding Level of Care Code 13719 SUB INP/OBS CARE 2/35MIN Diagnoses Hematoma of left thigh S70.12XA Atrial fibrillation, new onset I48.91 Pancytopenia D61.818 Acute pain of left thigh M79.652 Elevated troponin I level R79.89 BPH with urinary obstruction N40.1; N13.8 Essential hypertension I10 Aortic valve disease I35.9 CAD (coronary artery disease) I25.10 Morbid obesity E66.01 Hyperglycemia R73.9 Peripheral arterial disease I73.9
[2023-07-28] MEDS: METOPROLOL SUCC 25MG EXT REL TAB PO SCH (20:22)
[2023-07-29 06:57] LABS: Hematocrit (blood only) 26.8 % (42.0-52.0); Hemoglobin 8.5 g/dl (14.0-18.0); Mean Corpuscular Hemoglobin 27.8 pg (25.0-34.0); Mean Corpuscular Hgb Conc 31.7 g/dL (32.0-36.0); Mean Corpuscular Volume 87.6 fL (80.0-100.0); Platelet Count 53 K/uL (130-400); RDW Coefficient of Variation 15.5 % (11.5-14.5); RDW Standard Deviation 49.9 fL (36.4-46.3); Red Blood Count 3.06 M/uL (4.70-6.10); White Blood Count 3.46 K/ul (4.8-10.8)
[2023-07-29 07:15] LABS: BUN Creatinine Ratio 23.2 (10-20); Calcium 8.4 mg/dl (8.6-10.3); Creatinine Clr Calc Pharmacy 37.3 ml/min; Est GFR (African American) 38.4 ml/min; Est GFR (Non-African American) 33.1 ml/min; Potassium 4.2 mmol/L (3.5-5.1)
[2023-07-29 07:28] LABS: Basophils # (auto) 0.01 K/uL (0.00-0.20); Basophils % (auto) 0.3 %; Eosinophils # (auto) 0.09 K/uL (0.00-0.50); Eosinophils % (auto) 2.6 %; Immature Granulocytes # (auto) 0.01 K/uL (0.01-0.20); Immature Granulocytes % (auto) 0.3 %; Lymphocytes # (auto) 0.98 K/uL (1.20-3.40); Lymphocytes % (auto) 28.3 %; Monocytes # (auto) 0.66 K/uL (0.11-0.59); Monocytes % (auto) 19.1 %; Neutrophils # (auto) 1.71 K/uL (1.40-6.50); Neutrophils % (auto) 49.4 %; Ovalocytes 1+; Polychromasia 1+; Tear Drop Cells 1+
[2023-07-29] MEDS: HYDROCODONE/ACETAMOPHEN 5/325MG TAB PO PRN (09:53)
[2023-07-29] MEDS: lisinopril 5 MG TAB PO SCH (09:53)
[2023-07-29 10:16] LABS: Hematocrit (blood only) 27.8 % (42.0-52.0); Hemoglobin 8.6 g/dl (14.0-18.0)
--- NOTE | 2023-07-29 12:26 | Ultrasound Report ---
US extremity non-vascular ltd HISTORY: 88 years-old Male increased L thigh pain/swelling, hematoma acute pain and swelling of the left thigh COMPARISON: 07/27/2023 ultrasound, CT 07/26/2023 TECHNIQUE: Multiple real-time sonographic images of the left thigh were obtained assessing grayscale appearance and color flow FINDINGS: There is again noted an intramuscular hematoma within the left adductor measuring approximately 15 cm in length and remains unchanged. No color flow to suggest active extravasation. IMPRESSION: Unchanged 15 cm left adductor intramuscular hematoma ACT 112: Negative or not required by law. The above report was generated using voice recognition software. It may contain grammatical, syntax o r spelling errors. Electronically signed by: Shravan Mosqueda M.D. 07/29/2023 12:25 PM
--- NOTE | 2023-07-29 13:16 | Hospitalist Progress Note ---
Date of Service July 29, 2023 Assessment & Plan (1) Hematoma of left thigh: Plan: left thigh pain was presenting complaint in the ED appears to be spontaneous rather than traumatic chronic thrombocytopenia certainly does not help this situation although the count still remains >50 no recent h/o fall, left leg injury, or trauma he was coughing considerably at home from his respiratory illness - perhaps valsalva type physiology from coughing led to rupture of a vessel in the thigh causing the bleed? hematoma is in the adductor musculature which explains the severe pain with moving the left hip serial H/H has been stable, repeat u/s of L thigh 07/27 shows that the hematoma is 15cm in length - same as the CT study of note - INR wnl on labs 07/29 c/o increased thigh pain and Hg down one point from 9.2-->8.5. concern for continued hematoma expansion/bleeding repeated Hgb at 10 am and unchanged. repeated US of left thigh and hematoma unchanged at 15 cm. No concern for compartment syndrome on exam -continue pain control and PT/OT. taking 1 norco PRN. (2) Atrial fibrillation, new onset: Plan: no prior h/o a.fib per records seems asymptomatic from such rate control is improved he was started on heparin drip at admission but this was promptly stopped when found to have L thigh hematoma rapid Afib AM of 07/28 - improved after metoprolol 5 mg IV continue metoprolol succ 25 mg bid - good rate control last 24h K, Mag, TSH all wnl Echo 07/28 reviewed - EF 55-60%, mod concentric LVH, mild RV dilation, no valvular disease, technically difficult study systemic anticoagulation is contraindicated at this time because of thigh hematoma, in the longer term his thrombocytopenia also increases the risk of bleeding if anticoagulated (3) Pancytopenia: Plan: Present since 2021, reviewed previous labs - none in our system [id number], not present in 2019. I found an outside cardiology note from 11/2021 and he had leukopenia and mild thrombocytopenia (116) at that time Reviewed home meds and fill history - had a few Rx for antibiotics in Apr-May but this was after the onset of pancytopenia B12/folate/TSH wnl no prior h/o liver disease, also no abdominal imaging in records. will obtain abdominal ultrasound evaluate for hepatosplenomegaly peripheral smear - reviewed report - was not diagnostic of any specific cause SPEP/UPEP ordered lisinopril and other FAITH inhibitors have been associated with pancytopenia in case reports, I'm unable to determine the incidence of this however - will hold for now he will need hematology f/u as he may have a primary bone marrow disorder his daughter is aware of this finding (4) Acute pain of left thigh: Plan: 2nd to #1 see above (5) Elevated troponin I level: Plan: peak HS trop 65, flat trend likely 2nd to myocardial demand ischemia in setting of a.fib with RVR, acute bleeding into L thigh, etc no evidence of ACS (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 cont flomax (7) Essential hypertension: Plan: cont Metoprolol succ - increased held lisinopril as above (8) Aortic valve disease: Plan: s/p TAVR 2016 last echo 2022 (scanned in chart - done via [facility] system) this showed intact valve function updated echo unchanged though aortic valve not well vizualized (9) CAD (coronary artery disease): Plan: history of non-obstructive disease cath performed 07/14/22 at [facility] with results as below - he was not taking aspirin or a statin at home - unclear why (no aspirin - due to prior h/o hematuria, or possibly thrombocytopenia?) was on BB and FAITH at home - cont both (10) Morbid obesity: Plan: BMI 39-40 (11) Hyperglycemia: Plan: fasting glucose 161 during this admission A1c 5.6% (12) Peripheral arterial disease: Plan: there is evidence of PAD on arterial studies of left leg but this is NOT the cause of his left leg pain at ER presentation appreciate Dr Hill's consultation nothing acute needed for his PAD Plan DVT proph - SCD PT/OT 07/28 - weakness, decreased mobility, decreased balance, pain related to hematoma, tachycardic during eval, ongoing rehab recommended daughter extensively updated by phone 07/27 daughter in law updated in room 07/28 Admission and Anticipated Discharge Date Admission Date: July 26, 2023 Subjective L thigh and hip more painful today than yesterday. Not sure if amount of swelling changed. No shortness of breath or chest pain. Physical Exam 2 Physical Exam: PHYSICAL EXAMINATION Last 24h vital signs reviewed, see documentation in flowsheet General: comfortable appearing, no distress HEENT: Normocephalic, atraumatic, pupils round and equal, sclerae anicteric, no conjunctival injection, moist mucus membranes Lungs: Normal respiratory effort. Clear to auscultation bilaterally. No RRW Heart: irreg not tachycardic, no murmurs. No JVD Abdomen: Soft, nontender, nondistended. Bowel sounds present. Extremities: Warm, dry, well-perfused. No R lower extremity edema. left thigh with some swelling laterally, mildly enlarged and edematous compared to R thigh, not tight, no ecchymosis. Neuro: Alert and oriented x 4, face symmetric, moves 4 extremities well Psych: Normal affect and behavior Results & Data Results & Data Vital Signs (Past 12 Hours) Vital Signs Temp Pulse Pulse Resp BP Pulse Ox O2 Del Method 07/29/23 08:45 80 07/29/23 08:25 36.8 C 90 16 121/58 L 95 Room Air 07/29/23 08:00 Room Air 07/29/23 03:57 37.2 C 97 H 20 127/69 97 Room Air Laboratory Results 07/29/23 09:53 07/29/23 05:54 PG Care Time/CCT Total # of Minutes Spent Total Time Spent with Patient: Total time spent is greater than 50% in coordination of care (as documented) at patient's floor/unit and/or counseling patient: Coding Level of Care Code 50291 SUB INP/OBS CARE 3/50MIN Diagnoses Hematoma of left thigh S70.12XA Atrial fibrillation, new onset I48.91 Pancytopenia D61.818 Acute pain of left thigh M79.652 Elevated troponin I level R79.89 BPH with urinary obstruction N40.1; N13.8 Essential hypertension I10 Aortic valve disease I35.9 CAD (coronary artery disease) I25.10 Morbid obesity E66.01 Hyperglycemia R73.9 Peripheral arterial disease I73.9
[2023-07-30 08:52] LABS: BUN Creatinine Ratio 27.7 (10-20); Calcium 8.8 mg/dl (8.6-10.3); Creatinine Clr Calc Pharmacy 36.7 ml/min; Est GFR (African American) 37.6 ml/min; Est GFR (Non-African American) 32.5 ml/min; Potassium 4.3 mmol/L (3.5-5.1)
[2023-07-30 08:59] LABS: Hematocrit (blood only) 29.5 % (42.0-52.0); Mean Corpuscular Hemoglobin 27.4 pg (25.0-34.0); Mean Corpuscular Hgb Conc 30.5 g/dL (32.0-36.0); Mean Corpuscular Volume 89.7 fL (80.0-100.0); Platelet Count 63 K/uL (130-400); RDW Coefficient of Variation 15.6 % (11.5-14.5); Red Blood Count 3.29 M/uL (4.70-6.10)
--- NOTE | 2023-07-30 09:22 | Ultrasound Report ---
ABDOMINAL ULTRASOUND, RIGHT UPPER QUADRANT HISTORY: pancytopenia, eval for cirrhosis or splenomegaly. COMPARISON: 02/09/2023 FINDINGS: The liver measures 16 cm in length and contains a few scattered punctate calcifications. No suspicious hepatic mass lesions or marginal nodularity. Calcifications also noted within the spleen which measures 14 cm. No splenic mass or ascites. IMPRESSION: 1. Stable size and appearance of the spleen with borderline splenomegaly. 2. Splenic and hepatic calcifications compatible with prior granulomatous disease. ACT 112: Negative or not required by law. Electronically signed by: Shravan Mosqueda M.D. 07/30/2023 9:20 AM
[2023-07-30 10:56] LABS: Magnesium 1.8 mg/dl (1.7-2.4)
--- NOTE | 2023-07-30 12:57 | Discharge Summary ---
Date of Service July 30, 2023 Admission HPI Per Admitting Provider Keith Shipman is a pleasant 88yo male with history of CAD, HTN, GERD presenting from home with acute onset pain in the LLE. Patient was in his usual state of health today. He went to yarsani in the morning without difficulty. He was sitting down to supper this afternoon around 13:00 when he developed severe pain in his left anterior thigh with pain in his posterior thigh as well. The pain radiated to his knee. He called his grandson because he was unable to get up from his chair. He was unable to walk due to pain. No history of trauma or falls. No history of blood clots. Additionally patient denies chest pain, cough, abdominal pain, nausea, vomiting, diarrhea or constipation. No pain in the back. Patient is incontinent of urine and wears adult diapers - no complaints. In the ER he is afebrile, HD stable, NAD ER Course: Heparin drip Principal Diagnosis left thigh hematoma, atrial fibrillation with rapid rate (new diagnosis), chronic pancytopenia Discharge Exam PHYSICAL EXAMINATION Last 24h vital signs reviewed, see documentation in flowsheet General: comfortable appearing, no distress, sitting up in chair HEENT: Normocephalic, atraumatic, pupils round and equal, sclerae anicteric, no conjunctival injection, moist mucus membranes Lungs: Normal respiratory effort. Clear to auscultation bilaterally. No RRW. loose cough Heart: regular, no murmurs. No JVD Abdomen: Soft, nontender, nondistended. Bowel sounds present. Extremities: Warm, dry, well-perfused. trace R lower extremity edema. left thigh with some swelling laterally, mildly enlarged compared to R thigh, not tight, no ecchymosis. unchanged 07/30 Neuro: Alert and oriented x 4, face symmetric, moves 4 extremities well Psych: Normal affect and behavior Discharge Data Allergies Allergy/AdvReac Type Severity Reaction Status Date / Time No Known Allergies Allergy Verified 07/26/23 22:51 Consultations 07/26/23 23:08 ED Decision to Admit Stat 07/26/23 23:46 Consult Vascular Surgery Routine 07/29/23 13:53 Consult [facility] psychiatric social worker Routine Ordered Studies 07/26/23 21:16 US venous doppler LE LT Stat 07/26/23 21:27 US arterial duplex LE LT Stat 07/26/23 23:21 CT angio LE LT w inc wo if don Stat 07/27/23 14:39 US extremity non-vascular ltd Routine 07/29/23 09:50 US extremity non-vascular ltd Stat 07/30/23 US abdomen limited Routine Venous Doppler Study 07/26/23 21:16 Exam(s): US VENOUS LEFT LOWER EXTREMITY EXAM: US Duplex Left Lower Extremity Veins CLINICAL HISTORY: Reason for exam: thigh pain. TECHNIQUE: Real-time duplex ultrasound scan of the left lower extremity veins integrating B-mode two-dimensional vascular structure, Doppler spectral analysis, color flow Doppler imaging and compression. COMPARISON: No relevant prior studies available. FINDINGS: Deep veins: Unremarkable. No DVT of the LEFT lower extremity. Superficial veins: Unremarkable. No thrombus in the visualized great saphenous vein. Soft tissues: No acute findings. No popliteal cyst. IMPRESSION: No DVT of the LEFT lower extremity. Electronically signed by: Edmundo Beckford MD 07/26/23 22:37 PM Duplex Scan Lower Extremity Artery 07/26/23 21:27 Exam(s): US ARTERIAL LEFT LOWER EXTREMITY EXAM: US Duplex Left Lower Extremity Arteries CLINICAL HISTORY: Reason for exam: pain. TECHNIQUE: Real-time duplex ultrasound scan of the left lower extremity arteries integrating B-mode two-dimensional vascular structure, Doppler spectral analysis and color flow Doppler imaging. COMPARISON: No relevant prior studies available. FINDINGS: Left common femoral artery: No acute findings. No occlusion or significant stenosis on color flow and spectral Doppler imaging. Normal waveform. Left superficial femoral artery: No acute findings. No occlusion or significant stenosis on color flow and spectral Doppler imaging. Normal waveform. Left popliteal artery: No acute findings. No occlusion or significant stenosis on color flow and spectral Doppler imaging. Normal waveform. Left calf/foot arteries: No flow is detected within the left posterior tibial artery. Left anterior tibial artery is patent with multiphasic waveforms. Soft tissues: Unremarkable. IMPRESSION: No flow is detected within the left posterior tibial artery. No hemodynamically significant left femoral-popliteal artery disease. Electronically signed by: William Abarca M.D. 07/26/23 22:53 PM Lower Extremity CTA 07/26/23 23:21 Exam(s): CTA EXTREMITY LEFT LOWER W/WO Contrast IV Amt: 116 ML OPTIRAY 320 EXAM: CT Angiography of the Left Lower Extremity With Intravenous Contrast CLINICAL HISTORY: Reason for exam: left thigh pain. TECHNIQUE: Axial computed tomographic angiography images of the left lower extremity with intravenous contrast. CTDI is 35.62 mGy and DLP is 1753. 78 mGy-cm. Automated exposure control was utilized for the study. A dose lowering technique was utilized adhering to the principles of ALARA. MIP reconstructed images were created and reviewed. CONTRAST: Patient received 116 ML OPTIRAY 320 of IV contrast COMPARISON: None. FINDINGS: VASCULATURE: Left iliac arteries: Mild atherosclerotic plaques with the distal left common iliac artery with no stenosis. Calcified atherosclerotic disease to the left internal iliac artery with no stenosis or occlusion. Normal left external iliac artery with no stenosis. Left femoral/popliteal arteries: Calcified atherosclerotic disease throughout the left superficial femoral artery, more severe distally with no severe stenosis or occlusion. Minimal flow within the distal superficial femoral artery/popliteal artery consistent with high-grade stenosis. Minimal plaque at the left common femoral artery with no stenosis. Left calf/foot arteries: Minimal to no contrast visualized within the tibioperoneal trunk suggestive of severe stenosis to near occlusion. Severe atherosclerotic disease through the anterior tibial artery with intermittent visualization consistent with occlusion. Minimal visualization of the peroneal artery with multiple areas suggestive of occlusions. Severe calcified atherosclerotic disease of the posterior tibial artery with multiple areas of severe stenosis. Multiple areas of very short segment absent flow within the cephalad portion suggestive of severe narrowing or short segment occlusions. LOWER EXTREMITY: Bones/joints: No acute fracture. No dislocation. Soft tissues: Unremarkable. No abnormal contrast enhancement. IMPRESSION: 1. Severe disease through the trifurcation vessels with suggestion of occlusion of the anterior tibial and peroneal artery. 2. Intermittent flow within the proximal left posterior tibial artery suggestive of high-grade stenosis/near occlusion to occlusion. 3. Question severe stenosis to near occlusion of the tibioperoneal trunk. Electronically signed by: Eun Tillman MD 07/27/23 00:43 AM Chest X-Ray 07/27/23 11:00 XR chest 1V portable CLINICAL HISTORY: cough x 2 weeks COMPARISON STUDY: Chest radiograph April 19, 2023. FINDINGS: Prosthetic aortic valve is in place. Cardiomegaly is unchanged. No evidence for pulmonary edema. There is no consolidation to suggest pneumonia. There is no pneumothorax or pleural effusion. IMPRESSION: No acute cardiopulmonary findings. ACT 112: Negative or not required by law. Electronically signed by: Walter Steel M.D. 07/27/2023 11:50 AM Hip/Pelvis X-Ray 07/27/23 11:00 XR hip LT 2V w pelvis HISTORY: 88 years-old Male ?severe OA vs fracture vs other? Acute in the pelvis and left hip COMPARISON: CTA 07/26/2023 TECHNIQUE: AP view of the pelvis with 2 views of the left hip FINDINGS: Contrast noted within urinary bladder. Vascular calcifications within the pelvis. Mild to moderate osteoarthritis of the hips. IMPRESSION: 1. No acute fracture or dislocation. 2. Acute left-sided adductor intramuscular hematoma with active extravasation likely accounts for the patient's acute left hip/thigh pain. Please see the addendum for the CTA study from 07/26/2023. This was made as a call report at time of dictation. ACT 112: Negative or not required by law. The above report was generated using voice recognition software. It may contain grammatical, syntax or spelling errors. Electronically signed by: Shravan Mosqueda M.D. 07/27/2023 12:29 PM Vascular Ultrasound 07/27/23 14:39 US extremity non-vascular ltd CLINICAL HISTORY: L Thigh Hematoma, assess size COMPARISON STUDY: Left lower extremity CTA 07/26/2023. FINDINGS: There is again noted and intramuscular hematoma within the left adductor muscles. This is better appreciated on the prior CT. This measures approximately 15 cm in length. This remains unchanged. IMPRESSION: No significant change in the 15 cm intramuscular hematoma within the left adductor muscles. ACT 112: Negative or not required by law. Electronically signed by: Javi Ellis M.D. 07/27/2023 4:17 PM Vascular Ultrasound 07/29/23 09:50 US extremity non-vascular ltd HISTORY: 88 years-old Male increased L thigh pain/swelling, hematoma acute pain and swelling of the left thigh COMPARISON: 07/27/2023 ultrasound, CT 07/26/2023 TECHNIQUE: Multiple real-time sonographic images of the left thigh were obtained assessing grayscale appearance and color flow FINDINGS: There is again noted an intramuscular hematoma within the left adductor measuring approximately 15 cm in length and remains unchanged. No color flow to suggest active extravasation. IMPRESSION: Unchanged 15 cm left adductor intramuscular hematoma ACT 112: Negative or not required by law. The above report was generated using voice recognition software. It may contain grammatical, syntax or spelling errors. Electronically signed by: Shravan Mosqueda M.D. 07/29/2023 12:25 PM Abdomen Ultrasound 07/30/23 00:00 ABDOMINAL ULTRASOUND, RIGHT UPPER QUADRANT HISTORY: pancytopenia, eval for cirrhosis or splenomegaly. COMPARISON: 02/09/2023 FINDINGS: The liver measures 16 cm in length and contains a few scattered punctate calcifications. No suspicious hepatic mass lesions or marginal nodularity. Calcifications also noted within the spleen which measures 14 cm. No splenic mass or ascites. IMPRESSION: 1. Stable size and appearance of the spleen with borderline splenomegaly. 2. Splenic and hepatic calcifications compatible with prior granulomatous disease. ACT 112: Negative or not required by law. Electronically signed by: Shravan Mosqueda M.D. 07/30/2023 9:20 AM 07/30/23 07/30/23 Range/Units Unknown 08:08 WBC 3.90 L (4.8-10.8) K/ul RBC 3.29 L (4.70-6.10) M/uL Hgb 9.0 L (14.0-18.0) g/dl Hct 29.5 L (42.0-52.0) % MCV 89.7 (80.0-100.0) fL MCH 27.4 (25.0-34.0) pg MCHC 30.5 L (32.0-36.0) g/dL RDW Std Deviation 51.0 H (36.4-46.3) fL RDW Coeff of Catie 15.6 H (11.5-14.5) % Plt Count 63 L (130-400) K/uL Sodium 139 (136-145) mmol/L Potassium 4.3 (3.5-5.1) mmol/L Chloride 108 H (98-107) mmol/L Carbon Dioxide 22 (21-32) mmol/L Anion Gap 9 (3-11) BUN 51 H (6-23) mg/dl Creatinine 1.84 H (0.6-1.4) mg/dl Est Cr Clr Drug Dosing 36.7 ml/min Est GFR ( Amer) 37.6 ml/min Est GFR (Non-Af Amer) 32.5 ml/min BUN/Creatinine Ratio 27.7 H (10-20) Glucose 137 H (70-99(Fasting)) mg/dl Calcium 8.8 (8.6-10.3) mg/dl Magnesium 1.8 (1.7-2.4) mg/dl U Random Total Protein Pending Ur Creatinine mg/dL Pending Protein/Creatinin Ratio Pending Urine Albumin (%) Pending U [id number] (%) Pending U [id number] (%) Pending U Beta Globulin (%) Pending U Gamma Globulin (%) Pending U Abnormal Prot Band 1 Pending U Abnormal Prot Band 2 Pending U Abnormal Prot Band 3 Pending Urine PEP Interpret Pending Hospital Course (1) Hematoma of left thigh: left thigh pain was presenting complaint in the ED appears to be spontaneous rather than traumatic chronic thrombocytopenia certainly does not help this situation although the count still remains >50 no recent h/o fall, left leg injury, or trauma he was coughing considerably at home from recent viral respiratory illness - perhaps valsalva type physiology from coughing led to rupture of a vessel in the thigh causing the bleed? hematoma seen on CT is in the adductor musculature which explains the severe pain with moving the left hip serial H/H has been stable, repeat u/s of L thigh 07/27 shows that the hematoma is 15cm in length - same as the CT study of note - INR wnl on labs 07/29 c/o increased thigh pain and Hg down one point from 9.2-->8.5. concern for continued hematoma expansion/bleeding repeated Hgb at 10 am and unchanged. repeated US of left thigh and hematoma unchanged at 15 cm. No concern for compartment syndrome on exam 07/30 pain, exam and Hgb unchanged -continue pain control and PT/OT. taking 1 norco PRN and scheduled acetaminophen. (2) Atrial fibrillation, new onset: no prior h/o a.fib per records asymptomatic from such he was started on heparin drip at admission but this was promptly stopped when found to have L thigh hematoma rapid Afib AM of 07/28 - improved after metoprolol 5 mg IV continue metoprolol succ increased to 25 mg bid - good rate control with this dose K, Mag, TSH all wnl Echo 07/28 reviewed - EF 55-60%, mod concentric LVH, mild RV dilation, no valvular disease, technically difficult study systemic anticoagulation is contraindicated at this time because of thigh hematoma, in the longer term his thrombocytopenia also increases the risk of bleeding if anticoagulated follow up with his custom tailor Dr. Huy Adan at [facility] (3) Pancytopenia: Present since 2021, reviewed previous labs - none in our system [id number], not present in 2019. I found an outside cardiology note from 11/2021 and he had leukopenia and mild thrombocytopenia (116) at that time Reviewed home meds and fill history - had a few Rx for antibiotics in Apr-May but this was after the onset of pancytopenia B12/folate/TSH wnl no prior h/o liver disease, also no abdominal imaging in records. abdominal ultrasound showed borderline splenomegaly peripheral smear - reviewed report - was not diagnostic of any specific cause SPEP/UPEP ordered - pending lisinopril and other FAITH inhibitors have been associated with pancytopenia in case reports, I'm unable to determine the incidence of this however - will hold for now he will need hematology f/u as he may have a primary bone marrow disorder his daughter is aware of this finding -borderline splenomegaly could be the culprit but not completely convincing -follow up SPEP/UPEP -made outpatient hematology referral -hold lisinopril 2-4 weeks see if counts improve. 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 cont flomax (6) Essential hypertension: cont Metoprolol succ - increased held lisinopril as above (7) Aortic valve disease: s/p TAVR 2016 last echo 2022 (scanned in chart - done via [facility] system) this showed intact valve function updated echo unchanged though aortic valve not well vizualized (8) CAD (coronary artery disease): history of non-obstructive disease cath performed 07/14/22 at [facility] with results as below - he was not taking aspirin or a statin at home - unclear why (no aspirin - due to prior h/o hematuria, or possibly thrombocytopenia?) was on BB and FAITH at home - cont metoprolol for now (9) Morbid obesity: BMI 39-40 (10) Hyperglycemia: fasting glucose 161 during this admission A1c 5.6% (11) Peripheral arterial disease: there is evidence of PAD on arterial studies of left leg but this is NOT the cause of his left leg pain at ER presentation vascular surgeon Dr. Hill consulted at time of admission nothing acute needed for his PAD Total Time Total Time Spent Total Time Spent (In Minutes): I personally spent: 45 minutes today on clinical care activities including: reviewing chart notes and vital signs reviewing labs reviewing studies discussion with geriatric care manager examining and counseling the patient writing orders documentation Discharge Plan Discharge Items Patient Disposition: Transfer Inpatient Rehab Fac Reason For Visit: LLE PAIN Discharge Diagnosis: Left thigh hematoma, atrial fibrillation, chronic pancytopenia Condition on Discharge: Fair Activity: Resume your previous activity Weightbearing: Full weightbearing Non-emergency contact: Primary Care Provider and Betting Agency Manager Call non-emergency contact if: you have any medication questions and your symptoms worsen Follow-up/Referrals: Bernie Hair MD [Primary Care Provider] - Diet: Heart Healthy Addtl Attending Provider Instructions: PT and OT evaluate and treat Check CBC and BMP in 1 week Follow up with [facility] hematology (referral was made) for chronic pancytopenia Follow up with your custom tailor for atrial fibrillation and history of CAD Pending Studies at Discharge: Yes (SPEP and UPEP) Stand-Alone Forms: My [facility] Skilled Items Patient informed of condition?: Yes DNR: No Discharge Level of Care: Acute rehab Communicable Disease: No Discharge Prognosis: Improving Lines: None Urinary Catheter: No Medications and DC Order Prescriptions: New acetaminophen [Tylenol Extra Strength] 500 mg Tablet 500 mg PO TID Qty: 0 0RF guaifenesin [Mucinex] 600 mg Tablet Extended Release 12hr 1,200 mg PO Q12 7 Days Qty: 0 0RF metoprolol succinate 25 mg Tablet Extended Release 24 Hr 25 mg PO BID Qty: 0 0RF benzonatate 100 mg Capsule 100 mg PO TID PRN (Reason: cough) Qty: 0 0RF Continued esomeprazole magnesium 20 mg capsule,delayed release(DR/EC) 20 mg PO QAM tamsulosin 0.4 mg capsule 0.4 mg PO HS Qty: 30 0RF oxycodone-acetaminophen [Percocet] 7.5-325 mg tablet 1 tab PO Q8H PRN (Reason: pain) Qty: 20 0RF Held lisinopril 10 mg tablet 10 mg PO QAM Hold Instructions: Resume on 08/27/23. Discontinued metoprolol succinate 25 mg tablet extended release 24 hr 25 mg PO QAM Discharge Orders: Discharge Order (Routine); Ordered 07/30/23 Ordered By: Naima Valverde/Other Patient Handouts: AFib Admission Data Admit Date/Time: 07/26/23 23:46 Attending Provider: Naima Malone Admit Provider: Radha Burks Primary Care Provider: Bernie Hair Other Providers: Conor Hill; Radha Burks; [facility] Coding Level of Care Code 62823 INP/OBS DISCH >30 MIN Diagnoses Hematoma of left thigh S70.12XA Atrial fibrillation, new onset I48.91 Pancytopenia D61.818 Elevated troponin I level R79.89 BPH with urinary obstruction N40.1; N13.8 Essential hypertension I10 Aortic valve disease I35.9 CAD (coronary artery disease) I25.10 Morbid obesity E66.01 Hyperglycemia R73.9 Peripheral arterial disease I73.9
[2023-07-31 08:52] LABS: Albumin 2.9 g/dL (3.8-4.8); Alpha 1 Globulin 0.4 g/dL (0.2-0.3); Alpha 2 Globulin 0.6 g/dL (0.5-0.9); Beta-1-Globulin 0.3 g/dL (0.4-0.6); Beta-2-Globulin 0.4 g/dL (0.2-0.5); Monoclonal Protein Band 1 DNR g/dL (NONE DETECTED); Monoclonal Protein Band 2 DNR g/dL (NONE DETECTED); Monoclonal Protein Band 3 DNR g/dL (NONE DETECTED); Total Protein 5.6 g/dL (6.1-8.1)
[2023-08-03 08:48] LABS: Creatinine Ur 131 mg/dL (20-320); Protein, Urine Random 22 mg/dL (5-25); Ur Protein/Creat Ratio mg/g 168 mg/g creat (25-148); Urine Abnormal Protein Band 1 DNR mg/dL (NONE DETECTED); Urine Abnormal Protein Band 2 DNR mg/dL (NONE DETECTED); Urine Abnormal Protein Band 3 DNR mg/dL (NONE DETECTED); Urine Protein/Creatinine Ratio 0.168 (0.025-0.148)
== END 2023-07-30 16:44 | DRG 556 ==
LOC: ED 20:09 → SUATTDRO 23:46 → 2N 23:46